=== PATIENT | male | born 1975 | race Caucasian/White ===

== ENCOUNTER 2016-05-30 02:13 | Observation (INO) | payer MEDICAID ==
[~2016-05-30] VITALS: Ht 182.9 cm; Wt 79.4 kg
[2016-05-30] MEDS ORDERED: IPRATROPIUM BROM 0.5 MG/2.5ML INH SOL NEB ONE (02:15)
[2016-05-30] MEDS ORDERED: ALBUTEROL SULF 2.5 MG/0.5ML(0.5%) NEB SOLN NEB ONE (02:15)
[2016-05-30 02:45] LABS: Basophils # (auto) 0 uL; Basophils % (auto) 0.3 % (0.0-2.0); DEFINITIVE VIEW TRANSMISSION; Eosinophils # (auto) 1.1 uL; Hematocrit 45.1 % (41.0-53.0); Hemoglobin 15.1 g/dL (13.5-17.5); Lymphocytes # (auto) 2.8 uL; Lymphocytes % (auto) 23.7 % (10.0-50.0); Mean Corpuscular Hemoglobin 29.8 pg (28.0-32.0); Mean Corpuscular Hgb Conc. 33.5 g/dL (32.0-36.0); Mean Corpuscular Volume 88.8 fL (80.0-100.0); Mean Platelet Volume 8.1 fL (7.4-10.4); Monocytes # (auto) 1.2 uL; Monocytes % (auto) 10.4 % (0.0-12.0); Neutrophils # (auto) 6.7 uL; Neutrophils % (auto) 56.6 % (37.0-80.0); Platelet Count (auto) 412 10^3/uL (140-450); White Blood Cell 11.8 10^3/uL (4.4-10.8)
[2016-05-30 03:03] LABS: Albumin 3.5 g/dL (3.4-5.0); BUN/Creatinine Ratio 14.9; Calcium 8.4 mg/dL (8.5-10.1); Potassium 4.1 mmol/L (3.5-5.1)
[2016-05-30 03:05] LABS: Bilirubin, Total 0.5 mg/dL (0.2-1.0); Total Protein 7.2 g/dL (6.4-8.2)
[2016-05-30 08:50] VITALS: BP 124/86
== END 2016-05-30 08:35 | disposition home or self-care (01) | DRG 141 ==
LOC: ER 02:16 → OVERFLOW 02:45 → ER 08:35
PROVIDERS: ADMIT Emergency Medicine; ATTEND Emergency Medicine
DX: J45.901 Unspecified asthma with (acute) exacerbation (principal); F15.10 Other stimulant abuse, uncomplicated; F17.210 Nicotine dependence, cigarettes, uncomplicated; Z76.0 Encounter for issue of repeat prescription
CPT/HCPCS: 36415; 71010; 80053; 85025; 94644; 99285; G0378; J7030

== ENCOUNTER 2016-11-18 01:17 | Emergency (ER) | payer MEDICAID ==
[~2016-11-18] VITALS: Ht 182.9 cm; Wt 78.9 kg
[2016-11-18] MEDS ORDERED: ALBUTEROL SULF 2.5 MG/0.5ML(0.5%) NEB SOLN NEB ONE ×2 (01:30→07:30)
[2016-11-18] MEDS ORDERED: IPRATROPIUM BROM 0.5 MG/2.5ML INH SOL NEB ONE ×2 (01:30→07:30)
[2016-11-18 06:32] VITALS: BP 149/89
[2016-11-18] MEDS ORDERED: methylPREDNISolone SOD SUCC 125 MG/2 ML VL IV ONE (07:30)
== END 2016-11-18 08:28 | disposition home or self-care (01) ==
LOC: ER 01:17
DX: J45.901 Unspecified asthma with (acute) exacerbation (principal); F17.210 Nicotine dependence, cigarettes, uncomplicated; R07.9 Chest pain, unspecified
CPT/HCPCS: 71010; 94640; 96374; 99284; J2930

== ENCOUNTER 2017-07-17 05:48 | Emergency (ER) | payer MEDICAID ==
[~2017-07-17] VITALS: Ht 182.9 cm; Wt 79.4 kg
[2017-07-17] MEDS ORDERED: ALBUTEROL SULF 2.5 MG/0.5ML(0.5%) NEB SOLN HHN STA (06:08)
[2017-07-17 06:10] VITALS: BP 120/72
[2017-07-17] MEDS ORDERED: IPRATROPIUM BROM 0.5 MG/2.5ML INH SOL NEB ONE (06:15)
== END 2017-07-17 07:41 | disposition home or self-care (01) ==
LOC: ER 05:48
DX: J45.901 Unspecified asthma with (acute) exacerbation (principal); F17.210 Nicotine dependence, cigarettes, uncomplicated
CPT/HCPCS: 71046; 93005; 94640

== ENCOUNTER 2018-03-13 22:55 | Emergency (ER) | payer MEDICAID ==
[~2018-03-13] VITALS: Ht 182.9 cm; Wt 79.4 kg
[2018-03-13] MEDS ORDERED: ALBUTEROL SULF 2.5 MG/0.5ML(0.5%) NEB SOLN NEB ONE (23:15)
[2018-03-13] MEDS ORDERED: IPRATROPIUM BROM 0.5 MG/2.5ML INH SOL NEB ONE (23:15)
[2018-03-13] MEDS ORDERED: IPRATROPIUM BROM 0.5 MG/2.5ML INH SOL HHN ONE (23:30)
[2018-03-13] MEDS ORDERED: TERBUTALINE SULFATE 1 MG/ML 1ML VIAL SC ONE (23:30)
[2018-03-13] MEDS ORDERED: ALBUTEROL SULF 2.5 MG/0.5ML(0.5%) NEB SOLN HHN ONE (23:30)
[2018-03-13] MEDS ORDERED: methylPREDNISolone SOD SUCC 125 MG/2 ML VL IV ONE (23:30)
[2018-03-14 00:54] LABS: Basophils # (auto) 0.1 uL; Basophils % (auto) 0.6 % (0.0-2.0); Eosinophils # (auto) 1.1 uL; Eosinophils % (auto) 8.2 % (0.0-7.0); Hematocrit 44.7 % (41.0-53.0); Hemoglobin 15.2 g/dL (13.5-17.5); Lymphocytes # (auto) 1.9 uL; Lymphocytes % (auto) 14.2 % (10.0-50.0); Mean Corpuscular Hemoglobin 29.6 pg (28.0-32.0); Mean Corpuscular Hgb Conc. 33.9 g/dL (32.0-36.0); Mean Corpuscular Volume 87.3 fL (80.0-100.0); Monocytes # (auto) 1.4 uL; Monocytes % (auto) 10.1 % (0.0-12.0); Neutrophils # (auto) 9.1 uL; Neutrophils % (auto) 66.9 % (37.0-80.0); Nucleated Red Blood Cells % 0.1 %; Platelet Count (auto) 431 10^3/uL (140-450); Red Blood Cells 5.12 10^6/uL (4.5-5.90); Red Cell Distribution Width 13.8 % (11.8-14.3); White Blood Cell 13.7 10^3/uL (4.4-10.8)
[2018-03-14] MEDS: MAGNESIUM SULFATE 1GM/100ML 100 ML IV SCH ×2 (01:00→02:00)
[2018-03-14 01:08] LABS: Albumin 3.4 g/dL (3.4-5.0); BUN/Creatinine Ratio 12.4; Potassium 3.8 mmol/L (3.5-5.1)
[2018-03-14 01:17] LABS: Bilirubin, Total 0.4 mg/dL (0.2-1.0); Calcium 8.5 mg/dL (8.5-10.1); Total Protein 7.6 g/dL (6.4-8.2)
[2018-03-14 03:10] VITALS: BP 113/64
== END 2018-03-14 03:48 | disposition home or self-care (01) ==
LOC: ER 23:01
DX: J45.909 Unspecified asthma, uncomplicated (principal); F17.210 Nicotine dependence, cigarettes, uncomplicated
CPT/HCPCS: 36415; 71045; 80053; 85025; 94640; 94761; 96365; 96366; 96372; 96375; 99284; J2930; J3105; J3475; J7611; J7644

== ENCOUNTER 2019-04-18 21:47 | Emergency (ER) | payer MEDICAID ==
[~2019-04-18] VITALS: Ht 182.9 cm; Wt 81.6 kg
[2019-04-18] MEDS ORDERED: IPRATROPIUM BROM 0.5 MG/2.5ML INH SOL NEB ONE (22:15)
[2019-04-18] MEDS ORDERED: ALBUTEROL SULF 2.5 MG/0.5ML(0.5%) NEB SOLN NEB ONE (22:15)
[2019-04-18 22:42] VITALS: BP 108/77
[2019-04-18] MEDS ORDERED: methylPREDNISolone SOD SUCC 125 MG/2 ML VL IM ONE (22:45)
== END 2019-04-19 01:56 | disposition home or self-care (01) ==
LOC: ER 21:47
DX: J45.901 Unspecified asthma with (acute) exacerbation (principal); F17.210 Nicotine dependence, cigarettes, uncomplicated
CPT/HCPCS: 71046; 94640; 96372; 99283; J2930; J7611; J7644

== ENCOUNTER → 2019-05-13 | Emergency (ER) | payer MEDICAID ==
[~2019-05-13] VITALS: Ht 182.9 cm; Wt 86.2 kg
[~2019-05-13] MED LIST: ALBUTEROL SULF 2.5 MG/0.5ML(0.5%) NEB SOLN HHN ONE; ALBUTEROL SULF 2.5 MG/0.5ML(0.5%) NEB SOLN ONE; IPRATROPIUM BROM 0.5 MG/2.5ML INH SOL HHN ONE; IPRATROPIUM BROM 0.5 MG/2.5ML INH SOL ONE; SODIUM CHLORIDE 0.9% 1,000 ML IV ONE; TERBUTALINE SULFATE 1 MG/ML 1ML VIAL SC ONE; methylPREDNISolone SOD SUCC 125 MG/2 ML VL IV ONE
[2019-05-13] MEDS: MAGNESIUM SULFATE 1GM/100ML 100 ML IV SCH ×2 (05:40→06:55)
[2019-05-13 05:45] LABS: Basophils # (auto) 0.1 uL; Hemoglobin 15.2 g/dL (13.5-17.5); Monocytes # (auto) 1.2 uL; Neutrophils # (auto) 5.3 uL; Neutrophils % (auto) 43.4 % (37.0-80.0); Nucleated Red Blood Cells % 0.1 %
[2019-05-13 05:47] LABS: Basophils % (auto) 0.9 % (0.0-2.0); Eosinophils # (auto) 1.6 uL; Eosinophils % (auto) 12.7 % (0.0-7.0); Hematocrit 44.2 % (41.0-53.0); Mean Corpuscular Hemoglobin 30.3 pg (28.0-32.0); Mean Corpuscular Hgb Conc. 34.4 g/dL (32.0-36.0); Mean Corpuscular Volume 87.9 fL (80.0-100.0); Platelet Count (auto) 478 10^3/uL (140-450); Red Blood Cells 5.03 10^6/uL (4.5-5.90); Red Cell Distribution Width 13.5 % (11.8-14.3); White Blood Cell 12.3 10^3/uL (4.4-10.8)
[2019-05-13 07:04] VITALS: BP 108/59
== END | disposition home or self-care (01) ==
LOC: ER 04:49
DX: J45.901 Unspecified asthma with (acute) exacerbation (principal); F17.210 Nicotine dependence, cigarettes, uncomplicated
CPT/HCPCS: 36415; 71045; 83880; 85025; 93005; 94640; 96365; 96366; 96372; 96375; 99285; J2930; J3105; J3475; J7611; J7644

== ENCOUNTER 2019-05-19 21:41 | Emergency (ER) | payer MEDICAID ==
[~2019-05-19] VITALS: Ht 182.9 cm; Wt 86.2 kg
[2019-05-19] MEDS ORDERED: IPRATROPIUM BROM 0.5 MG/2.5ML INH SOL NEB ONE (21:45)
[2019-05-19] MEDS ORDERED: methylPREDNISolone SOD SUCC 125 MG/2 ML VL IV ONE (21:45)
[2019-05-19] MEDS ORDERED: ALBUTEROL SULF 2.5 MG/0.5ML(0.5%) NEB SOLN NEB ONE ×2 (21:45→22:00)
[2019-05-19 22:40] LABS: Basophils # (auto) 0 uL; Basophils % (auto) 0.3 % (0.0-2.0); Eosinophils # (auto) 0.9 uL; Eosinophils % (auto) 8.5 % (0.0-7.0); Hematocrit 46.8 % (41.0-53.0); Hemoglobin 15.9 g/dL (13.5-17.5); Lymphocytes # (auto) 3.2 uL; Lymphocytes % (auto) 30.1 % (10.0-50.0); Mean Corpuscular Hemoglobin 30.2 pg (28.0-32.0); Mean Corpuscular Volume 88.9 fL (80.0-100.0); Monocytes # (auto) 0.8 uL; Neutrophils # (auto) 5.6 uL; Neutrophils % (auto) 53.1 % (37.0-80.0); Platelet Count (auto) 394 10^3/uL (140-450); Red Blood Cells 5.26 10^6/uL (4.5-5.90); Red Cell Distribution Width 13.5 % (11.8-14.3); White Blood Cell 10.6 10^3/uL (4.4-10.8)
[2019-05-19 22:57] LABS: Albumin 3.5 g/dL (3.4-5.0); Anion Gap 6 (5-15); Blood Urea Nitrogen 13 mg/dL (7-18); Calcium 8.6 mg/dL (8.5-10.1); Carbon Dioxide 28 mmol/L (21-32); Chloride 107 mmol/L (98-107); Glucose 94 mg/dL (74-106); Potassium 3.6 mmol/L (3.5-5.1); Sodium 141 mmol/L (136-145)
[2019-05-19] MEDS ORDERED: SODIUM CHLORIDE 0.9% 1,000 ML IV ONE (23:00)
[2019-05-19 23:02] LABS: Alanine Aminotransferase 25 U/L (16-61); Alkaline Phosphatase 111 U/L (45-117); Aspartate Aminotransferase 24 U/L (15-37); BUN/Creatinine Ratio 13.4; Bilirubin, Total 0.4 mg/dL (0.2-1.0); GFR African American 108 mL/min; GFR Non-African American 89 mL/min; Total Protein 7.5 g/dL (6.4-8.2)
[2019-05-20 06:27] VITALS: BP 114/68
== END 2019-05-20 06:28 | disposition home or self-care (01) ==
LOC: ER 21:41
DX: R06.02 Shortness of breath (principal); J45.909 Unspecified asthma, uncomplicated; F17.210 Nicotine dependence, cigarettes, uncomplicated
CPT/HCPCS: 36415; 71045; 80053; 84484; 85025; 94640; 96374; 99284; J2930; J7030; J7644

== ENCOUNTER 2019-06-06 11:03 | Emergency (ER) | payer MEDICAID ==
[~2019-06-06] VITALS: Ht 182.9 cm; Wt 79.4 kg
[2019-06-06] MEDS ORDERED: ALBUTEROL SULF 2.5 MG/0.5ML(0.5%) NEB SOLN ONE (11:18)
[2019-06-06] MEDS ORDERED: IPRATROPIUM BROM 0.5 MG/2.5ML INH SOL ONE (11:18)
[2019-06-06] MEDS ORDERED: SODIUM CHLORIDE 0.9% 1,000 ML IV ONE (11:27)
[2019-06-06] MEDS ORDERED: ALBUTEROL SULF 2.5 MG/0.5ML(0.5%) NEB SOLN NEB ONE ×2 (11:30)
[2019-06-06] MEDS ORDERED: IPRATROPIUM BROM 0.5 MG/2.5ML INH SOL NEB ONE ×2 (11:30)
[2019-06-06] MEDS ORDERED: MAGNESIUM SULFATE 1GM/100ML 100 ML IV ONE (11:30)
[2019-06-06] MEDS ORDERED: methylPREDNISolone SOD SUCC 125 MG/2 ML VL IV ONE (11:30)
[2019-06-06 11:53] LABS: Hematocrit 45.3 % (41.0-53.0); Hemoglobin 15.2 g/dL (13.5-17.5); Mean Corpuscular Hemoglobin 30.5 pg (28.0-32.0); Mean Corpuscular Hgb Conc. 33.5 g/dL (32.0-36.0); Mean Corpuscular Volume 91.1 fL (80.0-100.0); Platelet Count (auto) 396 10^3/uL (140-450); Red Blood Cells 4.98 10^6/uL (4.5-5.90); Red Cell Distribution Width 13.4 % (11.8-14.3); White Blood Cell 8.8 10^3/uL (4.4-10.8)
[2019-06-06 12:03] LABS: Band Neutrophils % (manual) 0; Basophils % (manual) 0 (0.0-2.0); Blast Cells 0; Metamyelocytes % 0; Myelocytes % 0; Promyelocytes % 0; Reactive Lymphocytes 0
[2019-06-06 12:11] LABS: Albumin 3.3 g/dL (3.4-5.0); Anion Gap 4 (5-15); Blood Urea Nitrogen 16 mg/dL (7-18); Calcium 8.6 mg/dL (8.5-10.1); Carbon Dioxide 28 mmol/L (21-32); Chloride 107 mmol/L (98-107); Glucose 77 mg/dL (74-106); Sodium 139 mmol/L (136-145)
[2019-06-06 12:16] LABS: Alanine Aminotransferase 25 U/L (16-61); Alkaline Phosphatase 90 U/L (45-117); Aspartate Aminotransferase 21 U/L (15-37); Bilirubin, Total 0.3 mg/dL (0.2-1.0); GFR African American 127 mL/min; GFR Non-African American 105 mL/min
[2019-06-06 12:32] LABS: Eosinophils % (manual) 15 (0-7); Lymphocytes % (manual) 41 (10.0-50.0); Monocytes % (manual) 9 (0-12)
[2019-06-06 12:51] LABS: Urine Bacteria NONE SEEN /hpf (None Seen); Urine Blood Negative /uL (Negative); Urine Specific Gravity 1.015 (1.001-1.035); Urine WBC 1 /hpf (0 - 3)
[2019-06-06 15:13] LABS: Amphetamine Screen, Urine POSITIVE (NEGATIVE); Barbiturate Scree,Urine NEGATIVE (NEGATIVE); Benzodiazephine Screen, Urine NEGATIVE (NEGATIVE); Cannabinoid Screen, Urine NEGATIVE (NEGATIVE); Cocaine Screen, Urine POSITIVE (NEGATIVE); Opiate Scree,Urine NEGATIVE (NEGATIVE); Phencyclidine Screen, Urine NEGATIVE (NEGATIVE)
[2019-06-06 15:35] VITALS: BP 128/72
== END 2019-06-06 16:38 | disposition left against medical advice (07) ==
LOC: ER 11:03
DX: J45.901 Unspecified asthma with (acute) exacerbation (principal)
CPT/HCPCS: 36415; 71045; 80053; 80307; 81001; 84484; 85007; 85027; 85379; 94640; 96365; 96375; 99284; J2930; J3475; J7644

== ENCOUNTER 2019-06-18 19:58 | Emergency (ER) | payer MEDICAID ==
[~2019-06-18] VITALS: Ht 182.9 cm; Wt 79.4 kg
[2019-06-18 20:37] VITALS: BP 124/94
== END 2019-06-18 21:56 | disposition left against medical advice (07) ==
LOC: ER 19:58
DX: H57.12 Ocular pain, left eye (principal); Z53.21 Procedure and treatment not carried out due to patient leaving prior to being seen by health care provider

== ENCOUNTER 2019-07-10 20:43 | Emergency (ER) | payer MEDICAID ==
[~2019-07-10] VITALS: Ht 182.9 cm; Wt 79.4 kg
[2019-07-10 20:51] VITALS: BP 124/74
== END 2019-07-11 02:32 | disposition left against medical advice (07) ==
LOC: ER 20:45
DX: H57.89 Other specified disorders of eye and adnexa (principal); Z53.21 Procedure and treatment not carried out due to patient leaving prior to being seen by health care provider
CPT/HCPCS: 70486

== ENCOUNTER 2019-08-28 20:17 | Inpatient (IN) | payer MEDICAID ==
[~2019-08-28] VITALS: Ht 182.9 cm; Wt 76.6 kg
[2019-08-28 20:58] LABS: Basophils # (auto) 0.1 10 ^3/uL (0-0.2)
[2019-08-28 21:00] LABS: Basophils % (auto) 0.5 % (0.0-2.0); Eosinophils # (auto) 1.1 10 ^3/uL (0-0.8); Eosinophils % (auto) 5.4 % (0.0-7.0); Hematocrit 43.5 % (41.0-53.0); Hemoglobin 14.6 g/dL (13.5-17.5); Lymphocytes % (auto) 15.1 % (10.0-50.0); Mean Corpuscular Hemoglobin 29.3 pg (28.0-32.0); Mean Corpuscular Hgb Conc. 33.6 g/dL (32.0-36.0); Mean Corpuscular Volume 87.3 fL (80.0-100.0); Monocytes # (auto) 1.4 10 ^3/uL (0-1.3); Monocytes % (auto) 7.1 % (0.0-12.0); Neutrophils # (auto) 14.3 10 ^3/uL (1.6-8.6); Neutrophils % (auto) 71.9 % (37.0-80.0); Platelet Count (auto) 503 10^3/uL (140-450); Red Blood Cells 4.98 10^6/uL (4.5-5.90); Red Cell Distribution Width 13.7 % (11.8-14.3); White Blood Cell 19.9 10^3/uL (4.4-10.8)
[2019-08-28 21:15] LABS: BUN/Creatinine Ratio 18.3; Calcium 8.7 mg/dL (8.5-10.1); Potassium 3.4 mmol/L (3.5-5.1)
[2019-08-28] MEDS ORDERED: methylPREDNISolone SOD SUCC 125 MG/2 ML VL IV ONE (23:30)
[2019-08-28] MEDS ORDERED: cefTRIAXone 1GM/50ML D5W 50 ML IV ONE (23:30)
[2019-08-28] MEDS ORDERED: KETOROLAC TROMETH 30 MG/ML 1ML VIAL IV ONE (23:30)
[2019-08-28] MEDS ORDERED: SODIUM CHLORIDE 0.9% 2,000 ML IV ONE (23:30)
[2019-08-29] MEDS ORDERED: SODIUM CHLORIDE 0.9% 1,000 ML IV SCH (03:16)
[2019-08-29] MEDS ORDERED: DOCUSATE SOD 100 MG CAP PO PRN (03:30)
[2019-08-29] MEDS ORDERED: hydrALAZINE HCL 25 MG TAB PO PRN (03:30)
[2019-08-29] MEDS ORDERED: ACETAMINOPHEN 325 MG TAB PO PRN (03:30)
[2019-08-29] MEDS ORDERED: SODIUM CHLORIDE 0.9% 1,000 ML IV ONE (03:30)
[2019-08-29] MEDS ORDERED: ALBUTEROL SULF 2.5 MG/0.5ML(0.5%) NEB SOLN NEB PRN (03:30)
[2019-08-29] MEDS ORDERED: MORPHINE SULF INJ 2 MG/ML SYRINGE 1ML IV PRN (03:30)
[2019-08-29] MEDS ORDERED: ONDANSETRON HCL 4 MG/2 ML VIAL IV PRN (03:30)
[2019-08-29] MEDS ORDERED: HYDROcodone-ACET 5/325MG TAB PO PRN (03:30)
[2019-08-29] MEDS ORDERED: IPRATROPIUM BROM 0.5 MG/2.5ML INH SOL NEB PRN (03:30)
[2019-08-29] MEDS: CLINDAMYCIN 600MG IV 50 ML IV SCH ×3 (05:58→17:51)
[2019-08-29 07:33] LABS: Basophils # (auto) 0 10 ^3/uL (0-0.2); Basophils % (auto) 0.3 % (0.0-2.0); Eosinophils # (auto) 0 10 ^3/uL (0-0.8); Eosinophils % (auto) 0.1 % (0.0-7.0); Hematocrit 41.7 % (41.0-53.0); Hemoglobin 13.9 g/dL (13.5-17.5); Lymphocytes # (auto) 0.6 10 ^3/uL (0.4-5.4); Lymphocytes % (auto) 4.3 % (10.0-50.0); Mean Corpuscular Hemoglobin 29.4 pg (28.0-32.0); Mean Corpuscular Hgb Conc. 33.3 g/dL (32.0-36.0); Mean Corpuscular Volume 88.1 fL (80.0-100.0); Monocytes # (auto) 0.2 10 ^3/uL (0-1.3); Monocytes % (auto) 1.3 % (0.0-12.0); Neutrophils # (auto) 13.9 10 ^3/uL (1.6-8.6); Platelet Count (auto) 471 10^3/uL (140-450); Red Blood Cells 4.73 10^6/uL (4.5-5.90); Red Cell Distribution Width 13.5 % (11.8-14.3); White Blood Cell 14.8 10^3/uL (4.4-10.8)
[2019-08-29 07:48] LABS: Calcium 8.1 mg/dL (8.5-10.1); Potassium 4.1 mmol/L (3.5-5.1)
[2019-08-29 07:52] LABS: BUN/Creatinine Ratio 16.2
--- NOTE | 2019-08-29 11:30 | NUR ---
[facility] admit from ER LI[facility] BURNETT admitted to [facility] after SBAR received. Patient oriented to Noelle alexandre RN, unit, room, bed, and unit policies regarding patient care and visiting hours. Patient weighed by bedscale and encouraged to call if they need something. All questions and concerns addressed, patient verbalized understanding.
[2019-08-29 13:00] VITALS: BP 118/64
--- NOTE | 2019-08-29 13:40 | NUR ---
Respiratory note: PT ASSESSED FOR PRN MED NEB TX, NO TX DESIRED NOR INDICATED. PT SLEEPING WITH NO NOTED DISTRESS, DENIES ANY CURRENT SOB. PT AND RN AWARE TO HAVE RT PAGED IF NEEDED. HR 83 RR 16 SPO2 96% ON RA BREATH SOUNDS ARE DIMINISHED T/O.
[2019-08-29 15:42] VITALS: BP 124/78
[2019-08-29 16:27] LABS: Amphetamine Screen, Urine POSITIVE (NEGATIVE); Barbiturate Scree,Urine NEGATIVE (NEGATIVE); Benzodiazephine Screen, Urine NEGATIVE (NEGATIVE); Cannabinoid Screen, Urine NEGATIVE (NEGATIVE)
[2019-08-29 16:35] LABS: Cocaine Screen, Urine NEGATIVE (NEGATIVE); Opiate Scree,Urine NEGATIVE (NEGATIVE); Phencyclidine Screen, Urine POSITIVE (NEGATIVE)
[2019-08-29 16:43] LABS: Alcohol, Urine < 3.0 mg/dL (0-10)
[2019-08-29 17:00] VITALS: BP 110/58
[2019-08-29] MEDS: cefTRIAXone 1GM/50ML D5W 50 ML IV SCH (21:27)
[2019-08-29 22:00] VITALS: BP 107/61
[2019-08-30] MEDS: CLINDAMYCIN 600MG IV 50 ML IV SCH ×4 (00:49→17:46)
[2019-08-30 05:00] VITALS: BP 102/56
--- NOTE | 2019-08-30 07:20 | NUR ---
Opening Shift Note RECEIVED REPORT FROM NOC RN. Assumed care of patient, awake and alert. No S/S of distress/SOB or pain. BED IN LOWEST, LOCKED POSITION WITH SIDE RAILS UP x2 AND CALL LIGHT WITHIN REACH. Instructed on POC,call light within reach patient reminded instructed to call for assistance.patient verbalized understanding.will continue to monitor for changes Q1hr and PRN.
[2019-08-30 08:33] VITALS: BP 105/63
[2019-08-30 09:00] VITALS: BP 118/68
--- NOTE | 2019-08-30 09:30 | NUR ---
INFORMED CONSENT FOR SMOKING PATIENT REQUESTING TO GO OUT TO CHECK OUT ON HIS CAR THAT IS PARK IN THE HOSPITAL PARKING LOT,EXPLAIN TO PATIENT NEEDING HIM TO SIGN INFORMED CONSENT FOR SMOKING,EXPLAIN THE RISK THAT MAY OCCUR WHILE OUT AND WILL NOT HOLD THIS FACILITY,EMPLOYEES AND PHYSICIANS RESPONSIBLE FOR ANY RISK OR COMPLICATIONS THAT MAY ARISE THE RESULT OF LEAVING THE UNIT TO SMOKE OR JUST TO GET OUT.PATIENT ASSUMED RISK AND VERBALIZED UNDERSTANDING.CONSENT SIGNED AND PATIENT WENT OUT AMBULATORY INDEPENDENTLY.
[2019-08-30] MEDS: cefTRIAXone 1GM/50ML D5W 50 ML IV SCH ×2 (10:27→21:00)
[2019-08-30 13:00] VITALS: BP 118/68
[2019-08-30 13:21] LABS: Basophils # (auto) 0.1 10 ^3/uL (0-0.2); Basophils % (auto) 0.8 % (0.0-2.0); Eosinophils # (auto) 0.6 10 ^3/uL (0-0.8); Eosinophils % (auto) 4.1 % (0.0-7.0); Hematocrit 38.7 % (41.0-53.0); Lymphocytes # (auto) 3.8 10 ^3/uL (0.4-5.4); Lymphocytes % (auto) 27.2 % (10.0-50.0); Mean Corpuscular Hemoglobin 29.6 pg (28.0-32.0); Mean Corpuscular Hgb Conc. 33.6 g/dL (32.0-36.0); Monocytes # (auto) 1.2 10 ^3/uL (0-1.3); Monocytes % (auto) 8.9 % (0.0-12.0); Neutrophils # (auto) 8.2 10 ^3/uL (1.6-8.6); Nucleated Red Blood Cells % 0.1 %; Platelet Count (auto) 476 10^3/uL (140-450); Red Cell Distribution Width 13.6 % (11.8-14.3)
[2019-08-30 13:39] LABS: Calcium 8.1 mg/dL (8.5-10.1); Potassium 3.9 mmol/L (3.5-5.1)
[2019-08-30 13:45] LABS: BUN/Creatinine Ratio 20.2
[2019-08-30 17:00] VITALS: BP 114/69
--- NOTE | 2019-08-30 19:07 | NUR ---
status unchanged no distress no discomfort
--- NOTE | 2019-08-30 19:08 | NUR ---
Respiratory note: PT RECIEVED ON RA. PT WAS SLEEPING WHEN ENTERING ROOM AND AWAKENS EASILY. NO RESP DISTRESS NOTED. PRN TX NOT INDICATED AT THIS TIME. SPO2 95%, HR 92, RR 16, BS CLR/DIM T/O. PT AWARE TO CALL FOR PRN TX IF SOB/WHEEZING.
--- NOTE | 2019-08-30 19:25 | NUR ---
Opening Shift Note Assumed care of patient. Patient sleeping comfortably. No S/S of distress/SOB or pain. Will continue to monitor for changes Q1hr and PRN. Bed locked in lowest position and bed rails up x2. Call light within reach.
[2019-08-30 22:00] VITALS: BP 100/61
[2019-08-31 05:17] VITALS: BP 113/64
[2019-08-31] MEDS: CLINDAMYCIN 600MG IV 50 ML IV SCH ×3 (06:10→12:00)
--- NOTE | 2019-08-31 07:15 | NUR ---
Opening Shift Note RECEIVED REPORT FROM NOC RN. Assumed care of patient, ASLEEP,No S/S of distress/SOB or pain. BED IN LOWEST, LOCKED POSITION WITH SIDE RAILS UP x2 AND CALL LIGHT WITHIN REACH.will continue to monitor for changes Q1hr and PRN.
[2019-08-31 09:00] VITALS: BP 114/59
[2019-08-31] MEDS: cefTRIAXone 1GM/50ML D5W 50 ML IV SCH (10:01)
--- NOTE | 2019-08-31 10:30 | NUR ---
PER PATIENT MD WAS HERE TO SEE HIM ,STATED MD STATED WILL BE DISCHARGE.
--- NOTE | 2019-08-31 12:00 | NUR ---
Right foot IV site leaking,patient refused for another IV restarted,explain due antibiotic,but refused
[2019-08-31] MEDS ORDERED: FUROSEMIDE 40 MG/4 ML VIAL ONE (12:01)
--- NOTE | 2019-08-31 12:30 | NUR ---
Pageniranjan and spoke to re Lasix IV informed IV site leaking and patient refused to re start another IV line,received order to hold Lasix
[2019-08-31 13:00] VITALS: BP 102/62
[2019-08-31 13:12] VITALS: BP 114/59
[2019-08-31] MEDS ORDERED: CEPH-37 PO (13:27)
[2019-08-31] MEDS ORDERED: CLIN300C8 PO (13:28)
[2019-08-31] MEDS ORDERED: PANT40TA2 PO (13:28)
--- NOTE | 2019-08-31 14:20 | NUR ---
Discharge instructions given as ordered. Encourage to follow up with PMD as instructed. All questions and concerns addressed. Patient verbalized understanding. Medication reconciliation form completed and copy given to patient. IV removed with catheter intact, pressure dressing applied. . Patient ambulated, stated drove self and car is park in ER parking lot,with all personal belongings. No distress noted at time of departure.
== END 2019-08-31 14:20 | disposition home or self-care (01) | DRG 383 ==
LOC: ER 20:19 → OVERFLOW 20:20 → WEST WING 08-29 11:33
PROVIDERS: ADMIT Hospitalist; ATTEND Internal Medicine Nephrology
DX: L03.113 Cellulitis of right upper limb (principal); D72.829 Elevated white blood cell count, unspecified; E86.0 Dehydration; M60.9 Myositis, unspecified; L30.9 Dermatitis, unspecified; F15.10 Other stimulant abuse, uncomplicated; F17.210 Nicotine dependence, cigarettes, uncomplicated; J45.909 Unspecified asthma, uncomplicated; M72.9 Fibroblastic disorder, unspecified; F19.10 Other psychoactive substance abuse, uncomplicated
CPT/HCPCS: 36415; 73200; 80048; 80061; 80307; 83036; 83605; 83880; 85025; 87040; 96361; 96365; 96375; G0378; J0696; J1885; J3490

== ENCOUNTER 2020-11-03 03:16 | Emergency (ER) | payer MEDICAID ==
[~2020-11-03] VITALS: Ht 182.9 cm; Wt 79.4 kg
[~2020-11-03 03:16] MED LIST changes: -ALBUTEROL SULF 2.5 MG/0.5ML(0.5%) NEB SOLN HHN ONE; -ALBUTEROL SULF 2.5 MG/0.5ML(0.5%) NEB SOLN ONE; +CEPH-37 PO; +CLIN300C8 PO; -IPRATROPIUM BROM 0.5 MG/2.5ML INH SOL HHN ONE; -IPRATROPIUM BROM 0.5 MG/2.5ML INH SOL ONE; +PANT40TA2 PO; -SODIUM CHLORIDE 0.9% 1,000 ML IV ONE; -TERBUTALINE SULFATE 1 MG/ML 1ML VIAL SC ONE; -methylPREDNISolone SOD SUCC 125 MG/2 ML VL IV ONE
[2020-11-03] MEDS: ALBUTEROL SULF 2.5 MG/0.5ML(0.5%) NEB SOLN NEB ONE ×2 (03:30→03:45)
[2020-11-03] MEDS: IPRATROPIUM BROM 0.5 MG/2.5ML INH SOL NEB ONE ×2 (03:30→03:45)
[2020-11-03] MEDS ORDERED: methylPREDNISolone SOD SUCC 125 MG/2 ML VL ONE (03:45)
[2020-11-03] MEDS ORDERED: MAGNESIUM SULFATE 1GM/100ML 100 ML IV ONE (04:00)
[2020-11-03] MEDS ORDERED: methylPREDNISolone SOD SUCC 125 MG/2 ML VL IV ONE (04:00)
[2020-11-03 04:09] VITALS: BP 136/73
[2020-11-03] MEDS ORDERED: KETOROLAC TROMETH 30 MG/ML 1ML VIAL ONE (05:06)
[2020-11-03] MEDS ORDERED: KETOROLAC TROMETH 30 MG/ML 1ML VIAL IV ONE (05:15)
== END 2020-11-03 07:54 | disposition home or self-care (01) ==
LOC: ER 03:16
DX: J45.909 Unspecified asthma, uncomplicated (principal); F17.210 Nicotine dependence, cigarettes, uncomplicated
CPT/HCPCS: 71045; 94644; 96365; 96375; 99285; J1885; J2930; J3475; J7644

== ENCOUNTER 2021-04-21 03:03 | Emergency (ER) | payer MEDICAID ==
[~2021-04-21] VITALS: Ht 175.3 cm; Wt 72.6 kg
[2021-04-21] MEDS ORDERED: methylPREDNISolone SOD SUCC 125 MG/2 ML VL IV ONE (03:15)
[2021-04-21] MEDS ORDERED: ALBUTEROL SULF 2.5 MG/0.5ML(0.5%) NEB SOLN NEB ONE ×2 (03:15→04:15)
[2021-04-21] MEDS ORDERED: IPRATROPIUM BROM 0.5 MG/2.5ML INH SOL NEB ONE ×2 (03:15→04:15)
[2021-04-21] MEDS ORDERED: KETAMINE 50mg/ML 10ml Vial (500mg/10ml) IM ONE (03:30)
[2021-04-21] MEDS: MAGNESIUM SULFATE 1GM/100ML 100 ML IV SCH ×2 (03:45→04:21)
[2021-04-21 04:24] VITALS: BP 141/83
== END 2021-04-21 05:19 | disposition home or self-care (01) ==
LOC: ER 03:03
DX: J45.901 Unspecified asthma with (acute) exacerbation (principal); F17.210 Nicotine dependence, cigarettes, uncomplicated; F12.10 Cannabis abuse, uncomplicated
CPT/HCPCS: 71045; 94640; 96365; 96366; 96375; 99291; J2930; J3475; J7644; 94644; 94645

== ENCOUNTER 2021-05-23 08:06 | Emergency (ER) | payer MEDICAID ==
[~2021-05-23] VITALS: Ht 182.9 cm; Wt 79.4 kg
[2021-05-23 08:06] VITALS: BP 135/64
[2021-05-23] MEDS ORDERED: MAGNESIUM SULFATE 1GM/100ML 100 ML IV ONE (08:15)
[2021-05-23] MEDS ORDERED: methylPREDNISolone SOD SUCC 125 MG/2 ML VL IV ONE (08:15)
[2021-05-23] MEDS ORDERED: ALBUTEROL SULF 2.5 MG/0.5ML(0.5%) NEB SOLN NEB ONE (08:15)
[2021-05-23] MEDS ORDERED: IPRATROPIUM BROM 0.5 MG/2.5ML INH SOL NEB ONE (08:15)
[2021-05-23 09:29] LABS: Albumin 3.7 g/dL (3.4-5.0); Calcium 9.5 mg/dL (8.5-10.1); Potassium 4.7 mmol/L (3.5-5.1)
[2021-05-23 09:31] LABS: Basophils # (auto) 0.1 10 ^3/uL (0-0.2); Basophils % (auto) 0.9 % (0.0-2.0); Eosinophils # (auto) 1.3 10 ^3/uL (0-0.8); Eosinophils % (auto) 10.6 % (0.0-7.0); Hematocrit 47.4 % (41.0-53.0); Hemoglobin 16.1 g/dL (13.5-17.5); Lymphocytes # (auto) 2.9 10 ^3/uL (0.4-5.4); Lymphocytes % (auto) 23.8 % (10.0-50.0); Mean Corpuscular Hemoglobin 30.5 pg (28.0-32.0); Mean Corpuscular Hgb Conc. 33.9 g/dL (32.0-36.0); Monocytes # (auto) 1.1 10 ^3/uL (0-1.3); Monocytes % (auto) 8.6 % (0.0-12.0); Neutrophils # (auto) 6.9 10 ^3/uL (1.6-8.6); Neutrophils % (auto) 56.1 % (37.0-80.0); Nucleated Red Blood Cells % 0.1 %; Red Blood Cells 5.27 10^6/uL (4.5-5.90); Red Cell Distribution Width 13.8 % (11.8-14.3); White Blood Cell 12.4 10^3/uL (4.4-10.8)
[2021-05-23 09:45] LABS: Bilirubin, Total 0.6 mg/dL (0.2-1.0); Total Protein 7.7 g/dL (6.4-8.2)
[2021-05-23 10:12] LABS: Urine Bacteria NONE SEEN /hpf (None Seen); Urine Blood Negative /uL (Negative); Urine Specific Gravity 1.015 (1.001-1.035); Urine WBC 4 /hpf (0 - 3)
== END 2021-05-23 09:56 | disposition left against medical advice (07) ==
LOC: ER 08:06
DX: J45.901 Unspecified asthma with (acute) exacerbation (principal)
CPT/HCPCS: 36415; 71045; 80053; 81001; 83880; 84484; 85025; 94640; 96365; 96375; 99291; J2930; J3475; J7644

== ENCOUNTER 2021-07-31 00:09 | Emergency (ER) | payer MEDICAID ==
[~2021-07-31] VITALS: Ht 182.9 cm; Wt 79.4 kg
[2021-07-31] MEDS ORDERED: ALBUTEROL SULF 2.5 MG/0.5ML(0.5%) NEB SOLN NEB ONE ×2 (00:15→00:45)
[2021-07-31] MEDS ORDERED: IPRATROPIUM BROM 0.5 MG/2.5ML INH SOL NEB ONE ×2 (00:15→00:45)
[2021-07-31] MEDS ORDERED: predniSONE 20 MG TAB PO ONE (00:45)
[2021-07-31] MEDS ORDERED: ALBUTEROL SULF 2.5 MG/0.5ML(0.5%) NEB SOLN ONE (00:47)
[2021-07-31] MEDS ORDERED: IPRATROPIUM BROM 0.5 MG/2.5ML INH SOL ONE (00:47)
[2021-07-31] MEDS ORDERED: PRED20TA2 PO (01:53)
[2021-07-31] MEDS ORDERED: ALBU108A5 IN (01:53)
[2021-07-31] MEDS ORDERED: ALBU0.084 NEB (01:53)
[2021-07-31 02:00] VITALS: BP 109/62
== END 2021-07-31 03:13 | disposition home or self-care (01) ==
LOC: ER 00:09
DX: J45.901 Unspecified asthma with (acute) exacerbation (principal); F15.10 Other stimulant abuse, uncomplicated; F14.10 Cocaine abuse, uncomplicated
CPT/HCPCS: 94640; 94644; 99285; J7512; J7644

== ENCOUNTER 2021-08-28 21:33 | Emergency (ER) | payer MEDICAID ==
[~2021-08-28 21:33] MED LIST changes: +ALBU0.084 NEB; +ALBU108A5 IN; +PRED20TA2 PO
[2021-08-28] MEDS ORDERED: MAGNESIUM SULFATE 1GM/100ML 100 ML IV ONE (21:45)
[2021-08-28] MEDS ORDERED: DexAMETHasone SOD PHOS 10MG/1ML VIAL INJ IM ONE (21:45)
[2021-08-28] MEDS ORDERED: IPRATROPIUM BROM 0.5 MG/2.5ML INH SOL NEB ONE (21:45)
[2021-08-28] MEDS ORDERED: ALBUTEROL SULF 2.5 MG/0.5ML(0.5%) NEB SOLN NEB ONE (21:45)
[2021-08-28] MEDS ORDERED: METH4TAB47 PO (23:09)
[2021-08-28] MEDS ORDERED: ALBU108A5 IN (23:09)
[2021-08-28 23:14] VITALS: BP 126/81
== END 2021-08-28 23:33 | disposition home or self-care (01) ==
LOC: ER 21:33
DX: J45.909 Unspecified asthma, uncomplicated (principal)
CPT/HCPCS: 94640; 96365; 96372; 99284; J1100; J3475; J7644

== ENCOUNTER 2021-10-10 08:20 | Emergency (ER) | payer MEDICAID ==
[~2021-10-10] VITALS: Ht 182.9 cm; Wt 79.5 kg
[~2021-10-10 08:20] MED LIST changes: +METH4TAB47 PO
[2021-10-10] MEDS ORDERED: ALBUTEROL SULF 2.5 MG/0.5ML(0.5%) NEB SOLN HHN STA (08:33)
[2021-10-10] MEDS ORDERED: IPRATROPIUM BROM 0.5 MG/2.5ML INH SOL HHN ONE (08:45)
[2021-10-10] MEDS ORDERED: IPRATROPIUM BROM 0.5 MG/2.5ML INH SOL NEB ONE (08:45)
[2021-10-10] MEDS ORDERED: ALBUTEROL SULF 2.5 MG/0.5ML(0.5%) NEB SOLN HHN ONE (08:45)
[2021-10-10] MEDS ORDERED: methylPREDNISolone SOD SUCC 125 MG/2 ML VL IV ONE (08:45)
[2021-10-10] MEDS ORDERED: methylPREDNISolone SOD SUCC 125 MG/2 ML VL IM ONE (09:30)
[2021-10-10] MEDS ORDERED: ALBUAER3 IN (11:20)
[2021-10-10] MEDS ORDERED: METH4PAK PO (11:20)
[2021-10-10 11:33] VITALS: BP 115/71
== END 2021-10-10 11:35 | disposition home or self-care (01) ==
LOC: ER 08:20
DX: J45.901 Unspecified asthma with (acute) exacerbation (principal); F12.10 Cannabis abuse, uncomplicated; F15.10 Other stimulant abuse, uncomplicated; F14.10 Cocaine abuse, uncomplicated
CPT/HCPCS: 71046; 94640; 94644; 96372; 99285; J2930; J7644; 93005

== ENCOUNTER 2021-11-11 17:16 | Emergency (ER) | payer MEDICAID ==
[~2021-11-11] VITALS: Ht 182.9 cm; Wt 79.5 kg
[~2021-11-11 17:16] MED LIST changes: +ALBUAER3 IN; +METH4PAK PO
[2021-11-11 17:18] VITALS: BP 100/63
[2021-11-11] MEDS ORDERED: ALBUAER3 IN (18:43)
[2021-11-11] MEDS ORDERED: METH4PAK PO (18:50)
== END 2021-11-11 23:50 | disposition left against medical advice (07) ==
LOC: ER 17:18
DX: J45.901 Unspecified asthma with (acute) exacerbation (principal); F12.10 Cannabis abuse, uncomplicated; F15.10 Other stimulant abuse, uncomplicated; F14.10 Cocaine abuse, uncomplicated

== ENCOUNTER 2022-03-02 10:47 | Emergency (ER) | payer MEDICAID ==
[~2022-03-02] VITALS: Ht 182.9 cm; Wt 87.0 kg
[2022-03-02] MEDS ORDERED: ALBUTEROL SULF 2.5 MG/0.5ML(0.5%) NEB SOLN NEB ONE ×2 (11:15→11:30)
[2022-03-02] MEDS ORDERED: IPRATROPIUM BROM 0.5 MG/2.5ML INH SOL NEB ONE ×2 (11:15→11:30)
[2022-03-02] MEDS ORDERED: DexAMETHasone SOD PHOS 10MG/1ML VIAL INJ PO ONE (11:30)
[2022-03-02] MEDS ORDERED: AZIT250T8 PO (13:28)
[2022-03-02] MEDS ORDERED: DEXA6TAB6 PO (13:28)
[2022-03-02 13:35] VITALS: BP 125/73
== END 2022-03-02 13:58 | disposition home or self-care (01) ==
LOC: ER 10:47
DX: J45.909 Unspecified asthma, uncomplicated (principal); Z79.2 Long term (current) use of antibiotics; Z79.899 Other long term (current) drug therapy
CPT/HCPCS: 94640; 99283; J1100; J7644

== ENCOUNTER 2022-04-09 14:44 | Emergency (ER) | payer MEDICAID ==
[~2022-04-09] VITALS: Ht 182.9 cm; Wt 79.5 kg
[~2022-04-09 14:44] MED LIST changes: +AZIT250T8 PO; +DEXA6TAB6 PO
[2022-04-09] MEDS: ALBUTEROL SULF 2.5 MG/0.5ML(0.5%) NEB SOLN NEB ONE (16:08)
[2022-04-09] MEDS: ALBUTEROL MEDNEB 2.5 mg/3ml NEB ONE (16:08)
[2022-04-09] MEDS: IPRATROPIUM BROM 0.5 MG/2.5ML INH SOL NEB ONE (16:08)
[2022-04-09] MEDS: IPRATROPIUM BROM 0.5 MG/2.5ML INH SOL ONE (16:08)
[2022-04-09 16:13] VITALS: BP 118/66
[2022-04-09] MEDS: methylPREDNISolone SOD SUCC 125 MG/2 ML VL IM ONE (16:18)
[2022-04-09] MEDS ORDERED: PRED20TA2 PO (17:05)
[2022-04-09] MEDS ORDERED: ALBU108A5 IN (17:05)
[2022-04-09] MEDS ORDERED: TRIA0.1O TOP (17:05)
== END 2022-04-09 17:20 | disposition home or self-care (01) ==
LOC: ER 14:44
DX: J45.901 Unspecified asthma with (acute) exacerbation (principal); L20.9 Atopic dermatitis, unspecified; F12.10 Cannabis abuse, uncomplicated; F15.10 Other stimulant abuse, uncomplicated; F14.10 Cocaine abuse, uncomplicated
CPT/HCPCS: 71045; 94640; 96372; 99283; J2930; J7644

== ENCOUNTER 2022-04-27 02:14 | Emergency (ER) | payer MEDICAID ==
[~2022-04-27] VITALS: Ht 182.9 cm; Wt 80.0 kg
[~2022-04-27 02:14] MED LIST changes: +TRIA0.1O TOP
[2022-04-27 02:20] VITALS: BP 131/79
== END 2022-04-27 08:01 | disposition left against medical advice (07) ==
LOC: ER 02:14
DX: S01.01XA Laceration without foreign body of scalp, initial encounter (principal); Z53.21 Procedure and treatment not carried out due to patient leaving prior to being seen by health care provider; W01.198A Fall on same level from slipping, tripping and stumbling with subsequent striking against other object, initial encounter; Y93.89 Activity, other specified; Y92.89 Other specified places as the place of occurrence of the external cause; Y99.8 Other external cause status

== ENCOUNTER 2022-04-30 04:37 | Emergency (ER) | payer MEDICAID ==
[~2022-04-30] VITALS: Ht 182.9 cm; Wt 80.0 kg
[2022-04-30 04:37] VITALS: BP 146/80
[2022-04-30] MEDS ORDERED: IPRATROPIUM BROM 0.5 MG/2.5ML INH SOL NEB ONE (04:45)
[2022-04-30] MEDS ORDERED: ALBUTEROL SULF 2.5 MG/0.5ML(0.5%) NEB SOLN NEB ONE (04:45)
[2022-04-30] MEDS ORDERED: ALBUTEROL MEDNEB 2.5 mg/3ml NEB ONE (04:47)
[2022-04-30] MEDS ORDERED: methylPREDNISolone SOD SUCC 125 MG/2 ML VL IV ONE (05:00)
[2022-04-30 06:31] LABS: Basophils # (auto) 0.1 10 ^3/uL (0-0.2); Basophils % (auto) 0.4 % (0.0-2.0); Eosinophils # (auto) 0.2 10 ^3/uL (0-0.8); Hemoglobin 15.1 g/dL (13.5-17.5); Monocytes # (auto) 0.1 10 ^3/uL (0-1.3); Red Cell Distribution Width 14.4 % (11.8-14.3)
[2022-04-30 06:33] LABS: Eosinophils % (auto) 1.1 % (0.0-7.0); Hematocrit 46.4 % (41.0-53.0); Lymphocytes # (auto) 0.6 10 ^3/uL (0.4-5.4); Lymphocytes % (auto) 4.5 % (10.0-50.0); Mean Corpuscular Hemoglobin 28.4 pg (28.0-32.0); Mean Corpuscular Hgb Conc. 32.6 g/dL (32.0-36.0); Mean Corpuscular Volume 87.3 fL (80.0-100.0); Neutrophils # (auto) 13.3 10 ^3/uL (1.6-8.6); Nucleated Red Blood Cells % 0.1 %; Red Blood Cells 5.32 10^6/uL (4.5-5.90); White Blood Cell 14.3 10^3/uL (4.4-10.8)
[2022-04-30 06:48] LABS: Albumin 3.5 g/dL (3.4-5.0); Calcium 9.3 mg/dL (8.5-10.1); Magnesium 2.3 mg/dL (1.6-2.6); Potassium 4.2 mmol/L (3.5-5.1)
[2022-04-30 06:50] LABS: BUN/Creatinine Ratio 21.2
[2022-04-30 06:52] LABS: Bilirubin, Total 0.6 mg/dL (0.2-1.0); Total Protein 7.8 g/dL (6.4-8.2)
[2022-04-30] MEDS ORDERED: METH4PAK PO (07:52)
[2022-04-30] MEDS ORDERED: AZIT1POW PO (07:52)
== END 2022-04-30 12:00 | disposition left against medical advice (07) ==
LOC: ER 04:37
DX: J45.909 Unspecified asthma, uncomplicated (principal); D72.829 Elevated white blood cell count, unspecified; F12.10 Cannabis abuse, uncomplicated; F15.10 Other stimulant abuse, uncomplicated; F14.10 Cocaine abuse, uncomplicated; Z87.891 Personal history of nicotine dependence; Z79.899 Other long term (current) drug therapy
CPT/HCPCS: 36415; 71045; 80053; 83735; 85025; 94640; 96374; 99284; J2930; J7644

== ENCOUNTER 2022-05-20 23:39 | Emergency (ER) | payer MEDICAID ==
[~2022-05-20] VITALS: Ht 177.8 cm; Wt 86.2 kg
[~2022-05-20 23:39] MED LIST changes: +AZIT1POW PO
[2022-05-20 23:43] VITALS: BP 110/78
[2022-05-21] MEDS ORDERED: IPRATROPIUM BROM 0.5 MG/2.5ML INH SOL NEB ONE (01:15)
[2022-05-21] MEDS ORDERED: ALBUTEROL SULF 2.5 MG/0.5ML(0.5%) NEB SOLN NEB ONE (01:15)
[2022-05-21] MEDS ORDERED: methylPREDNISolone SOD SUCC 125 MG/2 ML VL IM ONE ×2 (01:15→01:30)
[2022-05-21] MEDS ORDERED: ALBUTEROL MEDNEB 2.5 mg/3ml NEB ONE (01:19)
[2022-05-21] MEDS ORDERED: PRED20TA2 PO (01:27)
[2022-05-21] MEDS ORDERED: ALBUAER3 IN (01:27)
== END 2022-05-21 01:30 | disposition home or self-care (01) ==
LOC: EDBD 23:39 → ER 23:39
DX: J45.901 Unspecified asthma with (acute) exacerbation (principal); F15.10 Other stimulant abuse, uncomplicated; F12.10 Cannabis abuse, uncomplicated
CPT/HCPCS: 94640; 96372; 99284; J2930; J7644

== ENCOUNTER 2022-07-26 17:36 | Inpatient (IN) | payer MEDICAID ==
[~2022-07-26] VITALS: Ht 182.9 cm; Wt 77.0 kg
[2022-07-26] MEDS ORDERED: DexAMETHasone SOD PHOS 10MG/1ML VIAL INJ IM ONE (18:00)
[2022-07-26] MEDS ORDERED: IPRATROPIUM BROM 0.5 MG/2.5ML INH SOL NEB ONE ×2 (18:00→22:15)
[2022-07-26] MEDS ORDERED: ALBUTEROL SULF 2.5 MG/0.5ML(0.5%) NEB SOLN NEB ONE ×2 (18:00→22:15)
[2022-07-26 18:37] LABS: Hemoglobin 15.6 g/dL (13.5-17.5)
[2022-07-26 18:39] LABS: Hematocrit 47.2 % (41.0-53.0); Mean Corpuscular Hemoglobin 29.1 pg (28.0-32.0); Red Blood Cells 5.37 10^6/uL (4.5-5.90); Red Cell Distribution Width 14.8 % (11.8-14.3); White Blood Cell 14.2 10^3/uL (4.4-10.8)
[2022-07-26 18:48] LABS: Band Neutrophils % (manual) 0; Basophils % (manual) 0 (0.0-2.0); Blast Cells 0; Metamyelocytes % 0; Myelocytes % 0; Promyelocytes % 0; Reactive Lymphocytes 0
[2022-07-26 18:55] LABS: Albumin 3.3 g/dL (3.4-5.0); Potassium 4.4 mmol/L (3.5-5.1)
[2022-07-26 19:00] LABS: BUN/Creatinine Ratio 8.6 (10.0-20.0); Bilirubin, Total 0.2 mg/dL (0.2-1.0); Total Protein 6.9 g/dL (6.4-8.2)
[2022-07-26 19:29] LABS: Eosinophils % (manual) 18 (0-7); Lymphocytes % (manual) 15 (10.0-50.0); Monocytes % (manual) 10 (0-12)
[2022-07-27] MEDS ORDERED: ALBU108A5 IN (01:11)
[2022-07-27] MEDS ORDERED: ALBUTEROL SULF 2.5 MG/0.5ML(0.5%) NEB SOLN NEB ONE ×2 (02:45)
[2022-07-27] MEDS ORDERED: AZITHROMYCIN 500MG/ 250ML 250 ML IV ONE (02:45)
[2022-07-27] MEDS: cefTRIAXone 1GM/50ML D5W 50 ML IV ONE ×2 (03:22→03:30)
[2022-07-27 03:50] LABS: Urine Bacteria NONE SEEN /hpf (None Seen); Urine Blood Negative /uL (Negative); Urine Mucus FEW (None Seen); Urine WBC 1 /hpf (0 - 3)
[2022-07-27] MEDS ORDERED: DOCUSATE SOD 100 MG CAP PO PRN (04:00)
[2022-07-27] MEDS ORDERED: ACETAMINOPHEN 325 MG TAB PO PRN (04:00)
[2022-07-27] MEDS ORDERED: HYDROcodone-ACET 5/325MG TAB PO PRN (04:00)
[2022-07-27] MEDS ORDERED: NITROGLYCERIN 0.4 MG SL TAB SL PRN (04:00)
[2022-07-27] MEDS ORDERED: ONDANSETRON HCL 4 MG/2 ML VIAL IV PRN (04:00)
[2022-07-27] MEDS ORDERED: MORPHINE SULFATE INJ 2 MG/ml SYRG IV PRN (04:00)
[2022-07-27 04:20] LABS: Alcohol, Urine < 3.0 mg/dL (0-10); Amphetamine Screen, Urine POSITIVE (NEGATIVE); Barbiturate Scree,Urine NEGATIVE (NEGATIVE); Benzodiazephine Screen, Urine NEGATIVE (NEGATIVE); Cannabinoid Screen, Urine NEGATIVE (NEGATIVE); Cocaine Screen, Urine NEGATIVE (NEGATIVE)
[2022-07-27 04:28] LABS: Opiate Scree,Urine NEGATIVE (NEGATIVE); Phencyclidine Screen, Urine NEGATIVE (NEGATIVE)
[2022-07-27 06:09] LABS: Basophils # (auto) 0 10 ^3/uL (0-0.2); Basophils % (auto) 0.4 % (0.0-2.0); Eosinophils # (auto) 0 10 ^3/uL (0-0.8); Eosinophils % (auto) 0.1 % (0.0-7.0); Hematocrit 44.7 % (41.0-53.0); Hemoglobin 14.9 g/dL (13.5-17.5); Lymphocytes # (auto) 0.6 10 ^3/uL (0.4-5.4); Mean Corpuscular Hemoglobin 29.2 pg (28.0-32.0); Mean Corpuscular Hgb Conc. 33.4 g/dL (32.0-36.0); Mean Corpuscular Volume 87.4 fL (80.0-100.0); Monocytes # (auto) 0.1 10 ^3/uL (0-1.3); Monocytes % (auto) 0.7 % (0.0-12.0); Neutrophils # (auto) 7.3 10 ^3/uL (1.6-8.6); Neutrophils % (auto) 91.8 % (37.0-80.0); Nucleated Red Blood Cells % 0.1 %; Red Blood Cells 5.11 10^6/uL (4.5-5.90); Red Cell Distribution Width 14.4 % (11.8-14.3)
[2022-07-27] MEDS: SODIUM CHLOR 0.9% PF (SALINE LOCK) 10ML VIAL/SYR IV SCH ×3 (06:11→22:01)
[2022-07-27] MEDS: methylPREDNISolone SOD SUCC 40 MG/ML VL IV SCH ×3 (06:13→22:01)
[2022-07-27 06:25] LABS: Potassium 4.3 mmol/L (3.5-5.1)
[2022-07-27 06:30] LABS: BUN/Creatinine Ratio 8.7 (10.0-20.0); Calcium 8.8 mg/dL (8.5-10.1)
[2022-07-27 06:48] LABS: Albumin 3.1 g/dL (3.4-5.0); Bilirubin, Total 0.2 mg/dL (0.2-1.0); Total Protein 7.3 g/dL (6.4-8.2)
[2022-07-27] MEDS: cefTRIAXone 1GM/50ML D5W 50 ML IV SCH (09:42)
[2022-07-27] MEDS: AZITHROMYCIN 500MG/ 250ML 250 ML IV SCH (09:42)
[2022-07-27] MEDS: ENOXAPARIN SOD 40 MG/0.4 ML SYRINGE SC SCH (09:43)
[2022-07-27] MEDS ORDERED: ASPirin 81 mg TAB PO SCH (10:00)
[2022-07-27] MEDS: FAMOTIDINE (10MG/ML) 2ML VL IV SCH ×2 (10:29→22:01)
[2022-07-27 11:03] VITALS: BP 129/71
[2022-07-27] MEDS: IPRATROPIUM BROM 0.5 MG/2.5ML INH SOL NEB PRN (13:36)
[2022-07-27] MEDS: ALBUTEROL SULF 2.5 MG/0.5ML(0.5%) NEB SOLN NEB PRN (13:36)
[2022-07-27 14:20] VITALS: BP 119/74
[2022-07-27 17:00] VITALS: BP 116/74
[2022-07-27 22:00] VITALS: BP 129/60
[2022-07-28] MEDS: IPRATROPIUM BROM 0.5 MG/2.5ML INH SOL NEB PRN (04:34)
[2022-07-28] MEDS: ALBUTEROL SULF 2.5 MG/0.5ML(0.5%) NEB SOLN NEB PRN (04:34)
[2022-07-28 05:00] VITALS: BP 115/65
[2022-07-28 05:46] LABS: Eosinophils # (auto) 0 10 ^3/uL (0-0.8); Lymphocytes # (auto) 1.3 10 ^3/uL (0.4-5.4); Lymphocytes % (auto) 5.4 % (10.0-50.0); Monocytes # (auto) 0.5 10 ^3/uL (0-1.3); White Blood Cell 24.8 10^3/uL (4.4-10.8)
[2022-07-28 05:50] LABS: Basophils # (auto) 0 10 ^3/uL (0-0.2); Basophils % (auto) 0.1 % (0.0-2.0); Hematocrit 43.9 % (41.0-53.0); Hemoglobin 14.6 g/dL (13.5-17.5); Mean Corpuscular Hemoglobin 28.9 pg (28.0-32.0); Mean Corpuscular Hgb Conc. 33.2 g/dL (32.0-36.0); Neutrophils # (auto) 22.9 10 ^3/uL (1.6-8.6); Neutrophils % (auto) 92.5 % (37.0-80.0); Nucleated Red Blood Cells % 0.1 %; Red Blood Cells 5.05 10^6/uL (4.5-5.90); Red Cell Distribution Width 14.7 % (11.8-14.3)
[2022-07-28 05:58] LABS: Calcium 8.7 mg/dL (8.5-10.1); Potassium 4.4 mmol/L (3.5-5.1)
[2022-07-28] MEDS ORDERED: methylPREDNISolone SOD SUCC 125 MG/2 ML VL ONE (05:58)
[2022-07-28] MEDS: methylPREDNISolone SOD SUCC 40 MG/ML VL IV SCH (05:59)
[2022-07-28] MEDS: SODIUM CHLOR 0.9% PF (SALINE LOCK) 10ML VIAL/SYR IV SCH (05:59)
[2022-07-28] MEDS ORDERED: IPRATROPIUM BROM 0.5 MG/2.5ML INH SOL NEB SCH (06:00)
[2022-07-28] MEDS ORDERED: ALBUTEROL SULF 2.5 MG/0.5ML(0.5%) NEB SOLN NEB SCH ×2 (06:00→12:00)
[2022-07-28 06:01] LABS: BUN/Creatinine Ratio 25.5 (10.0-20.0)
[2022-07-28 06:04] LABS: Bilirubin, Total 0.4 mg/dL (0.2-1.0); Total Protein 7.4 g/dL (6.4-8.2)
[2022-07-28] MEDS ORDERED: IPRATROPIUM BROM 0.5 MG/2.5ML INH SOL ONE (06:28)
[2022-07-28] MEDS ORDERED: ALBUTEROL SULF 2.5 MG/0.5ML(0.5%) NEB SOLN ONE (06:28)
[2022-07-28 08:48] VITALS: BP 119/79
[2022-07-28] MEDS: cefTRIAXone 1GM/50ML D5W 50 ML IV SCH (08:58)
[2022-07-28] MEDS: ENOXAPARIN SOD 40 MG/0.4 ML SYRINGE SC SCH (09:32)
[2022-07-28] MEDS: AZITHROMYCIN 500MG/ 250ML 250 ML IV SCH (10:19)
[2022-07-28] MEDS: FAMOTIDINE (10MG/ML) 2ML VL IV SCH (10:19)
[2022-07-28] MEDS ORDERED: PRED20TA2 PO (11:32)
[2022-07-28] MEDS: IPRATROPIUM BROM 0.5 MG/2.5ML INH SOL NEB SCH ×2 (12:03→12:28)
[2022-07-28 13:03] VITALS: BP 111/49
[2022-07-28 13:55] VITALS: BP 111/49
== END 2022-07-28 14:00 | disposition home or self-care (01) | DRG 140 ==
LOC: ER 17:36 → TELE 07-27 04:08 → TELE-WESTW 07-27 14:54
PROVIDERS: ADMIT Nurse Practitioner Family; ATTEND Internal Medicine Pulmonary Disease
DX: J44.1 Chronic obstructive pulmonary disease with (acute) exacerbation (principal); J96.01 Acute respiratory failure with hypoxia; F41.9 Anxiety disorder, unspecified; J45.901 Unspecified asthma with (acute) exacerbation; D72.829 Elevated white blood cell count, unspecified; D75.839 Thrombocytosis, unspecified
CPT/HCPCS: 36415; 71045; 80053; 80307; 81001; 82962; 85007; 85025; 85027; 94640; 96365; 96367; 96372; G0378; J0696; J1100; J3490

== ENCOUNTER 2022-09-16 08:33 | Emergency (ER) | payer MEDICAID ==
[~2022-09-16] VITALS: Ht 182.9 cm; Wt 76.6 kg
[~2022-09-16 08:33] MED LIST changes: -AZIT1POW PO; -AZIT250T8 PO; -CEPH-37 PO; -CLIN300C8 PO; -DEXA6TAB6 PO; -METH4PAK PO; -METH4TAB47 PO; -TRIA0.1O TOP
[2022-09-16] MEDS ORDERED: IPRATROPIUM BROM 0.5 MG/2.5ML INH SOL NEB ONE (08:45)
[2022-09-16] MEDS ORDERED: ALBUTEROL SULF 2.5 MG/0.5ML(0.5%) NEB SOLN NEB ONE ×2 (08:45→09:30)
[2022-09-16 09:05] VITALS: BP 121/63
[2022-09-16] MEDS ORDERED: DexAMETHasone SOD PHOS 10MG/1ML VIAL INJ IM ONE (09:30)
[2022-09-16] MEDS ORDERED: PRED20TA2 PO (09:58)
[2022-09-16] MEDS ORDERED: ALBUAER3 IN (09:58)
== END 2022-09-16 10:07 | disposition home or self-care (01) ==
LOC: ER 08:33
DX: J45.901 Unspecified asthma with (acute) exacerbation (principal); F12.90 Cannabis use, unspecified, uncomplicated; F15.90 Other stimulant use, unspecified, uncomplicated
CPT/HCPCS: 71046; 94640; 96372; 99284; J1100; J7644

== ENCOUNTER 2022-12-17 05:58 | Inpatient (IN) | payer MEDICAID ==
[2022-12-17] VITALS (7 sets, daily range): BP systolic 134; BP diastolic 70; PULSE 82–102; RESP 18–22; TEMP 97.6; O2SAT 92–99
[~2022-12-17] VITALS: Ht 182.9 cm; Wt 75.1 kg
[2022-12-17 06:26] LABS: Basophils # (auto) 0.1 10 ^3/uL (0-0.2); Basophils % (auto) 0.6 % (0.0-2.0); Eosinophils # (auto) 1.8 10 ^3/uL (0-0.8); Eosinophils % (auto) 12.8 % (0.0-7.0); Hematocrit 44.2 % (41.0-53.0); Hemoglobin 14.9 g/dL (13.5-17.5); Lymphocytes # (auto) 2.7 10 ^3/uL (0.4-5.4); Lymphocytes % (auto) 19.6 % (10.0-50.0); Mean Corpuscular Hemoglobin 29.7 pg (28.0-32.0); Mean Corpuscular Hgb Conc. 33.8 g/dL (32.0-36.0); Mean Corpuscular Volume 88.1 fL (80.0-100.0); Monocytes # (auto) 1.5 10 ^3/uL (0-1.3); Monocytes % (auto) 10.8 % (0.0-12.0); Neutrophils # (auto) 7.7 10 ^3/uL (1.6-8.6); Neutrophils % (auto) 56.2 % (37.0-80.0); Red Blood Cells 5.02 10^6/uL (4.5-5.90); Red Cell Distribution Width 14.1 % (11.8-14.3); White Blood Cell 13.7 10^3/uL (4.4-10.8)
[2022-12-17 06:41] LABS: INR 1.08 (0.9-1.15); Partial Thromboplastin Time 26.7 SEC (24.5-34.5); Prothrombin Time 11.3 sec (9.3-11.8)
[2022-12-17 06:48] LABS: Alanine Aminotransferase 17 U/L (7-40); Albumin 4.1 g/dL (3.2-4.8); Alkaline Phosphatase 93 U/L (46-116); Anion Gap 5 (5-15); Aspartate Aminotransferase 13 U/L (13-40); BUN/Creatinine Ratio 11.1 (10.0-20.0); Bilirubin, Total 0.6 mg/dL (0.2-1.0); Blood Urea Nitrogen 11 mg/dL (9-23); Calcium 9.1 mg/dL (8.7-10.4); Carbon Dioxide 27 mmol/L (20-30); Chloride 108 mmol/L (98-107); Glucose 96 mg/dL (74-106); Potassium 3.5 mmol/L (3.5-5.1); Sodium 140 mmol/L (136-145)
[2022-12-17] MEDS ORDERED: ALBUTEROL SULF 2.5 MG/0.5ML(0.5%) NEB SOLN ONE (07:13)
[2022-12-17] MEDS ORDERED: DexAMETHasone SOD PHOS 10MG/1ML VIAL INJ IV ONE (07:15)
[2022-12-17] MEDS ORDERED: ALBUTEROL SULF 2.5 MG/0.5ML(0.5%) NEB SOLN NEB ONE (07:15)
[2022-12-17 07:34] LABS: Base Excess -0.4 mmol/L (-2.0-2.0)
[2022-12-17] MEDS ORDERED: ACETAMINOPHEN 325 MG TAB PO PRN (08:30)
[2022-12-17] MEDS ORDERED: DOCUSATE SOD 100 MG CAP PO PRN (08:30)
[2022-12-17] MEDS ORDERED: HYDROcodone-ACET 5/325MG TAB PO PRN (08:30)
[2022-12-17] MEDS ORDERED: ONDANSETRON HCL 4 MG/2 ML VIAL IV PRN (08:30)
[2022-12-17] MEDS ORDERED: NITROGLYCERIN 0.4 MG SL TAB SL PRN (09:00)
[2022-12-17] MEDS ORDERED: MORPHINE SULFATE INJ 2 MG/ml SYRG IV PRN (09:00)
[2022-12-17] MEDS: FAMOTIDINE (10MG/ML) 2ML VL IV SCH ×2 (10:26→22:46)
[2022-12-17] MEDS: SODIUM CHLOR 0.9% PF (SALINE LOCK) 10ML VIAL/SYR IV SCH ×2 (14:03→22:46)
[2022-12-17] MEDS: methylPREDNISolone SOD SUCC 40 MG/ML VL IV SCH ×2 (14:07→22:46)
[2022-12-17 14:52] LABS: Amphetamine Screen, Urine Pos (NEGATIVE); Barbiturate Scree,Urine Neg (NEGATIVE); Benzodiazephine Screen, Urine Neg (NEGATIVE); Cannabinoid Screen, Urine Pos (NEGATIVE); Cocaine Screen, Urine Neg (NEGATIVE); Opiate Scree,Urine Neg (NEGATIVE); Phencyclidine Screen, Urine Neg (NEGATIVE)
[2022-12-17] MEDS: IPRATROPIUM BROM 0.5 MG/2.5ML INH SOL NEB PRN (18:16)
[2022-12-17] MEDS: ALBUTEROL SULF 2.5 MG/0.5ML(0.5%) NEB SOLN NEB PRN (18:16)
[2022-12-18] VITALS (11 sets, daily range): BP systolic 101–134; BP diastolic 43–72; PULSE 67–88; RESP 16–18; TEMP 97.6–98.6; O2SAT 92–99
[2022-12-18 05:52] LABS: Basophils # (auto) 0 10 ^3/uL (0-0.2); Eosinophils # (auto) 0 10 ^3/uL (0-0.8); Hemoglobin 14.3 g/dL (13.5-17.5); Lymphocytes # (auto) 0.8 10 ^3/uL (0.4-5.4); Neutrophils # (auto) 14.7 10 ^3/uL (1.6-8.6)
[2022-12-18] MEDS: SODIUM CHLOR 0.9% PF (SALINE LOCK) 10ML VIAL/SYR IV SCH ×3 (05:54→22:00)
[2022-12-18] MEDS: methylPREDNISolone SOD SUCC 40 MG/ML VL IV SCH ×2 (05:54→16:00)
[2022-12-18 05:56] LABS: Basophils % (auto) 0.2 % (0.0-2.0); Hematocrit 42.5 % (41.0-53.0); Lymphocytes % (auto) 4.7 % (10.0-50.0); Mean Corpuscular Hemoglobin 29.9 pg (28.0-32.0); Mean Corpuscular Hgb Conc. 33.6 g/dL (32.0-36.0); Monocytes # (auto) 0.5 10 ^3/uL (0-1.3); Monocytes % (auto) 3.1 % (0.0-12.0); Nucleated Red Blood Cells % 0.1 %; Red Blood Cells 4.78 10^6/uL (4.5-5.90); Red Cell Distribution Width 14.1 % (11.8-14.3)
[2022-12-18 06:09] LABS: Alanine Aminotransferase 13 U/L (7-40); Alkaline Phosphatase 85 U/L (46-116); Anion Gap 7 (5-15); Aspartate Aminotransferase 15 U/L (13-40); Bilirubin, Total 0.4 mg/dL (0.2-1.0); Blood Urea Nitrogen 18 mg/dL (9-23); Calcium 9.4 mg/dL (8.5-10.1); Carbon Dioxide 26 mmol/L (20-30); Chloride 110 mmol/L (98-107); Glucose 142 mg/dL (74-106); Potassium 4.3 mmol/L (3.5-5.1); Sodium 143 mmol/L (136-145)
[2022-12-18] MEDS: FAMOTIDINE (10MG/ML) 2ML VL IV SCH ×2 (09:51→22:00)
[2022-12-18] MEDS: MAGNESIUM SULFATE 1GM/100ML 100 ML IV SCH (16:00)
[2022-12-18] MEDS: ALBUTEROL SULF 2.5 MG/0.5ML(0.5%) NEB SOLN NEB PRN (16:11)
[2022-12-18] MEDS: IPRATROPIUM BROM 0.5 MG/2.5ML INH SOL NEB PRN (16:11)
[2022-12-18] MEDS: predniSONE 20 MG TAB PO SCH (22:29)
[2022-12-19] VITALS (7 sets, daily range): BP systolic 101–117; BP diastolic 46–64; PULSE 63–84; RESP 16–22; TEMP 97.7–98.2; O2SAT 93–99
[2022-12-19 06:47] LABS: Basophils # (auto) 0 10 ^3/uL (0-0.2); Basophils % (auto) 0.1 % (0.0-2.0); Eosinophils # (auto) 0 10 ^3/uL (0-0.8); Hematocrit 42.7 % (41.0-53.0); Hemoglobin 14.5 g/dL (13.5-17.5); Lymphocytes % (auto) 5.7 % (10.0-50.0); Mean Corpuscular Hemoglobin 30.1 pg (28.0-32.0); Mean Corpuscular Hgb Conc. 33.8 g/dL (32.0-36.0); Monocytes # (auto) 0.6 10 ^3/uL (0-1.3); Monocytes % (auto) 3.6 % (0.0-12.0); Neutrophils # (auto) 15.6 10 ^3/uL (1.6-8.6); Neutrophils % (auto) 90.6 % (37.0-80.0); Red Cell Distribution Width 14.3 % (11.8-14.3); White Blood Cell 17.2 10^3/uL (4.4-10.8)
[2022-12-19] MEDS: ALBUTEROL SULF 2.5 MG/0.5ML(0.5%) NEB SOLN NEB PRN (06:49)
[2022-12-19] MEDS: IPRATROPIUM BROM 0.5 MG/2.5ML INH SOL NEB PRN (06:49)
[2022-12-19 07:02] LABS: Anion Gap 6 (5-15); Carbon Dioxide 27 mmol/L (20-30); Chloride 107 mmol/L (98-107); Potassium 4.4 mmol/L (3.5-5.1); Sodium 140 mmol/L (136-145)
[2022-12-19 07:04] LABS: Calcium 9.3 mg/dL (8.5-10.1)
[2022-12-19 07:08] LABS: BUN/Creatinine Ratio 22.2 (10.0-20.0); Blood Urea Nitrogen 22 mg/dL (9-23); Glucose 119 mg/dL (74-106)
[2022-12-19] MEDS: FAMOTIDINE (10MG/ML) 2ML VL IV SCH (10:00)
[2022-12-19] MEDS: predniSONE 20 MG TAB PO SCH (10:02)
[2022-12-19 12:48] LABS: COVID19 ANTIGEN SOFIA FIA NEGATIVE (NEGATIVE); Rapid Influenza A Negative (Negative); Rapid Influenza B Negative (Negative)
[2022-12-19] MEDS: SODIUM CHLOR 0.9% PF (SALINE LOCK) 10ML VIAL/SYR IV SCH (13:10)
== END 2022-12-19 14:15 | disposition left against medical advice (07) | DRG 141 ==
LOC: ER 05:58 → EDBD 05:58 → TELE 08:59 → TELE-EAST 21:48
PROVIDERS: ADMIT Internal Medicine Pulmonary Disease; ATTEND Internal Medicine Pulmonary Disease
DX: J45.901 Unspecified asthma with (acute) exacerbation (principal); D72.829 Elevated white blood cell count, unspecified; F15.10 Other stimulant abuse, uncomplicated; F17.200 Nicotine dependence, unspecified, uncomplicated; Z20.822 Contact with and (suspected) exposure to COVID-19; Z53.21 Procedure and treatment not carried out due to patient leaving prior to being seen by health care provider; Z71.51 Drug abuse counseling and surveillance of drug abuser
CPT/HCPCS: 36415; 36600; 71045; 71250; 80048; 80053; 80307; 82805; 83880; 84484; 85025; 85610; 85730; 87081; 87426; 87804; 93005; 94640; 96374; 96375; G0378; J1100; J3490

== ENCOUNTER 2022-12-29 03:45 | Inpatient (IN) | payer MEDICAID ==
[2022-12-29] VITALS (11 sets, daily range): BP systolic 110–129; BP diastolic 58–75; PULSE 75–113; RESP 17–26; TEMP 98.2–98.6; O2SAT 91–100
[~2022-12-29] VITALS: Ht 182.9 cm; Wt 77.7 kg
[2022-12-29] MEDS ORDERED: ALBUTEROL SULF 2.5 MG/0.5ML(0.5%) NEB SOLN ONE (03:59)
[2022-12-29] MEDS ORDERED: ALBUTEROL SULF 2.5 MG/0.5ML(0.5%) NEB SOLN NEB ONE (04:00)
[2022-12-29] MEDS ORDERED: IPRATROPIUM BROM 0.5 MG/2.5ML INH SOL NEB ONE (04:00)
[2022-12-29] MEDS ORDERED: ACETAMINOPHEN 325 MG TAB PO ONE (04:15)
[2022-12-29] MEDS ORDERED: ONDANSETRON HCL 4 MG/2 ML VIAL IV ONE (04:15)
[2022-12-29] MEDS ORDERED: cefTRIAXone 1GM/50ML D5W 50 ML IV ONE (04:15)
[2022-12-29] MEDS ORDERED: methylPREDNISolone SOD SUCC 40 MG/ML VL IV ONE (04:15)
[2022-12-29] MEDS ORDERED: TERBUTALINE SULFATE 1 MG/ML 1ML VIAL SC ONE (04:15)
[2022-12-29] MEDS ORDERED: AZITHROMYCIN 500MG/ 250ML 250 ML IV ONE (04:15)
[2022-12-29] MEDS ORDERED: PANTOPRAZOLE 40 MG/10 ML VIAL INJ IV ONE (04:15)
[2022-12-29] MEDS ORDERED: SODIUM CHLORIDE 0.9% 1,000 ML IV ONE (04:15)
[2022-12-29] MEDS ORDERED: ALBUTEROL SULF 2.5 MG/0.5ML(0.5%) NEB SOLN HHN ONE ×2 (04:15)
[2022-12-29] MEDS ORDERED: IPRATROPIUM BROM 0.5 MG/2.5ML INH SOL HHN ONE ×2 (04:15)
[2022-12-29] MEDS ORDERED: LORazepam 2MG/ML-1ML VIAL IV ONE (04:30)
[2022-12-29 04:33] LABS: Basophils # (auto) 0.1 10 ^3/uL (0-0.2); Basophils % (auto) 0.5 % (0.0-2.0); Eosinophils % (auto) 12.1 % (0.0-7.0); Hematocrit 43.8 % (41.0-53.0); Hemoglobin 14.8 g/dL (13.5-17.5); Lymphocytes # (auto) 2.1 10 ^3/uL (0.4-5.4); Lymphocytes % (auto) 12.4 % (10.0-50.0); Mean Corpuscular Hemoglobin 30.1 pg (28.0-32.0); Mean Corpuscular Hgb Conc. 33.7 g/dL (32.0-36.0); Mean Corpuscular Volume 89.3 fL (80.0-100.0); Monocytes # (auto) 1.3 10 ^3/uL (0-1.3); Neutrophils # (auto) 11.2 10 ^3/uL (1.6-8.6); Red Blood Cells 4.91 10^6/uL (4.5-5.90); White Blood Cell 16.7 10^3/uL (4.4-10.8)
[2022-12-29 04:48] LABS: INR 1.03 (0.9-1.15); Partial Thromboplastin Time 25.5 SEC (24.5-34.5); Prothrombin Time 10.8 sec (9.3-11.8)
[2022-12-29 04:54] LABS: Base Excess 0.7 mmol/L (-2.0-2.0)
[2022-12-29] MEDS: MAGNESIUM SULFATE 1GM/100ML 100 ML IV SCH ×2 (04:55→05:43)
[2022-12-29 05:10] LABS: Alanine Aminotransferase 21 U/L (7-40); Albumin 3.7 g/dL (3.2-4.8); Alkaline Phosphatase 100 U/L (46-116); Anion Gap 8 (5-15); Aspartate Aminotransferase 26 U/L (13-40); Blood Urea Nitrogen 10 mg/dL (9-23); Calcium 8.8 mg/dL (8.5-10.1); Carbon Dioxide 27 mmol/L (20-30); Chloride 107 mmol/L (98-107); Glucose 120 mg/dL (74-106); Potassium 3.8 mmol/L (3.5-5.1); Sodium 142 mmol/L (136-145)
[2022-12-29 05:11] LABS: Bilirubin, Total 0.5 mg/dL (0.2-1.0); Total Protein 6.3 g/dL (5.7-8.2)
[2022-12-29] MEDS ORDERED: ONDANSETRON HCL 4 MG/2 ML VIAL IV PRN (06:30)
[2022-12-29] MEDS ORDERED: NITROGLYCERIN 0.4 MG SL TAB SL PRN (06:30)
[2022-12-29] MEDS ORDERED: IPRATROPIUM BROM 0.5 MG/2.5ML INH SOL NEB PRN ×3 (06:30→07:15)
[2022-12-29] MEDS ORDERED: TEMAZEPAM 15 MG CAP PO PRN (06:30)
[2022-12-29] MEDS ORDERED: MORPHINE SULFATE INJ 2 MG/ml SYRG IV PRN (06:30)
[2022-12-29] MEDS ORDERED: ACETAMINOPHEN 325 MG TAB PO PRN (06:30)
[2022-12-29 06:35] LABS: Magnesium 1.9 mg/dL (1.6-2.6)
[2022-12-29] MEDS: ALBUTEROL SULF 2.5 MG/0.5ML(0.5%) NEB SOLN NEB PRN ×2 (06:58→07:03)
[2022-12-29] MEDS ORDERED: LORazepam 2MG/ML-1ML VIAL IV PRN (08:45)
[2022-12-29] MEDS: methylPREDNISolone SOD SUCC 40 MG/ML VL IV SCH ×2 (10:20→21:23)
[2022-12-30] VITALS (13 sets, daily range): BP systolic 107–150; BP diastolic 56–75; PULSE 68–113; RESP 15–22; TEMP 97.7–98.5; O2SAT 93–99
[2022-12-30] MEDS ORDERED: VANCOMYCIN PER PHARMACY 0 MG IV SCH (03:30)
[2022-12-30] MEDS ORDERED: VANCOMYCIN 1GM/250ML 250 ML IV ONE (03:30)
[2022-12-30] MEDS: ALBUTEROL SULF 2.5 MG/0.5ML(0.5%) NEB SOLN NEB PRN (05:56)
[2022-12-30 06:27] LABS: Chloride 108 mmol/L (98-107); Potassium 4.3 mmol/L (3.5-5.1); Sodium 141 mmol/L (136-145)
[2022-12-30 06:28] LABS: Anion Gap 5 (5-15); Carbon Dioxide 28 mmol/L (20-30)
[2022-12-30 06:29] LABS: Calcium 8.7 mg/dL (8.5-10.1)
[2022-12-30 06:33] LABS: Glucose 109 mg/dL (74-106)
[2022-12-30 06:34] LABS: BUN/Creatinine Ratio 8.9 (10.0-20.0); Blood Urea Nitrogen 7 mg/dL (9-23)
[2022-12-30] MEDS: methylPREDNISolone SOD SUCC 40 MG/ML VL IV SCH ×2 (10:02→21:36)
[2022-12-30] MEDS: VANCOMYCIN 1GM/250ML 250 ML IV SCH ×3 (10:02→21:51)
[2022-12-30] MEDS ORDERED: ALBUTEROL SULF 2.5 MG/0.5ML(0.5%) NEB SOLN NEB SCH (12:00)
[2022-12-30] MEDS ORDERED: IPRATROPIUM BROM 0.5 MG/2.5ML INH SOL NEB SCH (12:00)
[2022-12-30] MEDS: ALBUTEROL SULF 2.5 MG/0.5ML(0.5%) NEB SOLN NEB SCH ×3 (13:57→21:57)
[2022-12-30] MEDS: IPRATROPIUM BROM 0.5 MG/2.5ML INH SOL NEB SCH ×3 (13:58→21:57)
[2022-12-30] MEDS: BUDESONIDE (INHALATION) 0.5 MG/2 ML NEB NEB SCH (21:57)
[2022-12-30 23:51] LABS: Urine Amorphous Crystal MOD /hpf (None Seen); Urine Bacteria FEW /hpf (None Seen); Urine Blood Negative /uL (Negative); Urine Clarity HAZY (Clear); Urine Color Yellow (Yellow); Urine Protein, UAD Negative (Negative); Urine Specific Gravity 1.022 (1.001-1.035); Urine WBC 2 /hpf (0 - 3)
[2022-12-30 23:55] LABS: Amphetamine Screen, Urine Neg (NEGATIVE); Barbiturate Scree,Urine Neg (NEGATIVE); Benzodiazephine Screen, Urine Neg (NEGATIVE); Cannabinoid Screen, Urine Neg (NEGATIVE); Cocaine Screen, Urine Neg (NEGATIVE); Opiate Scree,Urine Neg (NEGATIVE); Phencyclidine Screen, Urine Neg (NEGATIVE)
[2022-12-31] VITALS (17 sets, daily range): BP systolic 104–142; BP diastolic 48–71; PULSE 54–107; RESP 17–20; TEMP 97.4–98.1; O2SAT 91–100
[2022-12-31] MEDS: IPRATROPIUM BROM 0.5 MG/2.5ML INH SOL NEB SCH ×6 (02:00→21:38)
[2022-12-31] MEDS: ALBUTEROL SULF 2.5 MG/0.5ML(0.5%) NEB SOLN NEB SCH ×6 (02:00→21:38)
[2022-12-31] MEDS: VANCOMYCIN 1GM/250ML 250 ML IV SCH (05:05)
[2022-12-31 05:54] LABS: Basophils # (auto) 0 10 ^3/uL (0-0.2); Eosinophils # (auto) 0 10 ^3/uL (0-0.8); Hematocrit 40.7 % (41.0-53.0); Hemoglobin 13.5 g/dL (13.5-17.5); Lymphocytes # (auto) 0.9 10 ^3/uL (0.4-5.4); Lymphocytes % (auto) 5.1 % (10.0-50.0); Mean Corpuscular Hemoglobin 30.1 pg (28.0-32.0); Mean Corpuscular Hgb Conc. 33.2 g/dL (32.0-36.0); Mean Corpuscular Volume 90.5 fL (80.0-100.0); Monocytes # (auto) 0.4 10 ^3/uL (0-1.3); Monocytes % (auto) 2.5 % (0.0-12.0); Neutrophils # (auto) 15.4 10 ^3/uL (1.6-8.6); Neutrophils % (auto) 92.4 % (37.0-80.0); Nucleated Red Blood Cells % 0.1 %; Red Cell Distribution Width 13.9 % (11.8-14.3); White Blood Cell 16.7 10^3/uL (4.4-10.8)
[2022-12-31 06:05] LABS: Chloride 105 mmol/L (98-107); Potassium 4.3 mmol/L (3.5-5.1); Sodium 139 mmol/L (136-145)
[2022-12-31 06:06] LABS: Anion Gap 7 (5-15); Calcium 8.9 mg/dL (8.5-10.1); Carbon Dioxide 27 mmol/L (20-30)
[2022-12-31 06:11] LABS: BUN/Creatinine Ratio 14.8 (10.0-20.0); Blood Urea Nitrogen 13 mg/dL (9-23); Glucose 114 mg/dL (74-106)
[2022-12-31] MEDS: methylPREDNISolone SOD SUCC 40 MG/ML VL IV SCH ×2 (09:48→21:59)
[2022-12-31] MEDS: AZITHROMYCIN 250 MG TAB PO SCH (09:48)
[2022-12-31] MEDS: BUDESONIDE (INHALATION) 0.5 MG/2 ML NEB NEB SCH ×2 (09:49→21:38)
[2022-12-31] MEDS ORDERED: SODIUM CHLORIDE 0.9% 1,000 ML IV ONE (11:30)
[2022-12-31] MEDS: MAGNESIUM SULFATE 1GM/100ML 100 ML IV SCH ×2 (13:00→13:45)
[2022-12-31] MEDS: ceFAZolin 2 GM/D5W100ml 100 ML IV SCH ×2 (15:34→21:59)
[2023-01-01] VITALS (12 sets, daily range): BP systolic 125–135; BP diastolic 70–81; PULSE 65–95; RESP 17–20; TEMP 97.9–98; O2SAT 93–99
[2023-01-01] MEDS: IPRATROPIUM BROM 0.5 MG/2.5ML INH SOL NEB SCH ×6 (02:00→22:31)
[2023-01-01] MEDS: ALBUTEROL SULF 2.5 MG/0.5ML(0.5%) NEB SOLN NEB SCH ×6 (02:00→22:31)
[2023-01-01] MEDS: ceFAZolin 2 GM/D5W100ml 100 ML IV SCH ×3 (06:00→21:43)
[2023-01-01] MEDS: BUDESONIDE (INHALATION) 0.5 MG/2 ML NEB NEB SCH ×2 (10:00→17:46)
[2023-01-01] MEDS: methylPREDNISolone SOD SUCC 40 MG/ML VL IV SCH ×2 (10:00→21:43)
[2023-01-01] MEDS: AZITHROMYCIN 250 MG TAB PO SCH (10:00)
[2023-01-01] MEDS: MUPIROCIN 2% OINT 15gm or 22gm FOR MRSA NARES EACHNOSTRI SCH (21:44)
[2023-01-02] VITALS (14 sets, daily range): BP systolic 103–133; BP diastolic 57–82; PULSE 65–85; RESP 16–19; TEMP 97.6–98.1; O2SAT 95–100
[2023-01-02] MEDS: ALBUTEROL SULF 2.5 MG/0.5ML(0.5%) NEB SOLN NEB SCH ×7 (02:00→22:08)
[2023-01-02] MEDS: IPRATROPIUM BROM 0.5 MG/2.5ML INH SOL NEB SCH ×7 (02:00→22:08)
[2023-01-02] MEDS: ceFAZolin 2 GM/D5W100ml 100 ML IV SCH (06:09)
[2023-01-02 06:16] LABS: Basophils # (auto) 0 10 ^3/uL (0-0.2); Basophils % (auto) 0.2 % (0.0-2.0); Eosinophils # (auto) 0 10 ^3/uL (0-0.8); Eosinophils % (auto) 0.2 % (0.0-7.0); Hematocrit 42.9 % (41.0-53.0); Hemoglobin 13.9 g/dL (13.5-17.5); Lymphocytes # (auto) 2.8 10 ^3/uL (0.4-5.4); Lymphocytes % (auto) 17.2 % (10.0-50.0); Mean Corpuscular Hemoglobin 29.7 pg (28.0-32.0); Mean Corpuscular Hgb Conc. 32.3 g/dL (32.0-36.0); Mean Corpuscular Volume 91.8 fL (80.0-100.0); Monocytes # (auto) 1.2 10 ^3/uL (0-1.3); Monocytes % (auto) 7.4 % (0.0-12.0); Red Blood Cells 4.68 10^6/uL (4.5-5.90); Red Cell Distribution Width 14.2 % (11.8-14.3)
[2023-01-02 06:30] LABS: Anion Gap 7 (5-15); Carbon Dioxide 28 mmol/L (20-30); Chloride 105 mmol/L (98-107); Potassium 4.3 mmol/L (3.5-5.1); Sodium 140 mmol/L (136-145)
[2023-01-02 06:31] LABS: Calcium 8.8 mg/dL (8.7-10.4)
[2023-01-02 06:36] LABS: BUN/Creatinine Ratio 15.2 (10.0-20.0); Blood Urea Nitrogen 14 mg/dL (9-23)
[2023-01-02 07:07] LABS: Glucose 91 mg/dL (74-106)
[2023-01-02] MEDS ORDERED: VANCOMYCIN PER PHARMACY 0 MG IV SCH (11:15)
[2023-01-02] MEDS: BUDESONIDE (INHALATION) 0.5 MG/2 ML NEB NEB SCH ×2 (11:23→19:15)
[2023-01-02] MEDS: AZITHROMYCIN 250 MG TAB PO SCH (11:40)
[2023-01-02] MEDS: MUPIROCIN 2% OINT 15gm or 22gm FOR MRSA NARES EACHNOSTRI SCH ×2 (11:43→22:13)
[2023-01-02] MEDS: ALPRAZolam 0.25 MG TAB PO PRN (13:16)
[2023-01-02] MEDS: VANCOMYCIN 1GM/250ML 250 ML IV SCH ×2 (13:16→19:50)
[2023-01-03] VITALS (11 sets, daily range): BP systolic 101–121; BP diastolic 44–72; PULSE 64–102; RESP 16–22; TEMP 97.8–98.5; O2SAT 94–100
[2023-01-03] MEDS: ALBUTEROL SULF 2.5 MG/0.5ML(0.5%) NEB SOLN NEB SCH ×6 (02:00→19:24)
[2023-01-03] MEDS: IPRATROPIUM BROM 0.5 MG/2.5ML INH SOL NEB SCH ×6 (02:00→19:24)
[2023-01-03] MEDS: VANCOMYCIN 1GM/250ML 250 ML IV SCH ×3 (04:09→20:10)
[2023-01-03 06:14] LABS: Chloride 105 mmol/L (98-107); Potassium 3.5 mmol/L (3.5-5.1); Sodium 140 mmol/L (136-145)
[2023-01-03 06:16] LABS: Calcium 8.4 mg/dL (8.5-10.1)
[2023-01-03 06:18] LABS: Basophils # (auto) 0 10 ^3/uL (0-0.2); Basophils % (auto) 0.2 % (0.0-2.0); Eosinophils # (auto) 0.9 10 ^3/uL (0-0.8); Eosinophils % (auto) 10.1 % (0.0-7.0); Hematocrit 42.2 % (41.0-53.0); Hemoglobin 14.3 g/dL (13.5-17.5); Lymphocytes # (auto) 3.9 10 ^3/uL (0.4-5.4); Lymphocytes % (auto) 43.5 % (10.0-50.0); Mean Corpuscular Hemoglobin 30.4 pg (28.0-32.0); Mean Corpuscular Hgb Conc. 33.8 g/dL (32.0-36.0); Mean Corpuscular Volume 90.2 fL (80.0-100.0); Monocytes # (auto) 0.6 10 ^3/uL (0-1.3); Monocytes % (auto) 7.1 % (0.0-12.0); Neutrophils # (auto) 3.5 10 ^3/uL (1.6-8.6); Neutrophils % (auto) 39.1 % (37.0-80.0); Red Blood Cells 4.68 10^6/uL (4.5-5.90); Red Cell Distribution Width 14.1 % (11.8-14.3); White Blood Cell 9.1 10^3/uL (4.4-10.8)
[2023-01-03 06:21] LABS: BUN/Creatinine Ratio 15.9 (10.0-20.0); Blood Urea Nitrogen 17 mg/dL (9-23); Glucose 140 mg/dL (74-106)
[2023-01-03 06:37] LABS: Anion Gap 6 (5-15); Carbon Dioxide 29 mmol/L (20-30)
[2023-01-03] MEDS: methylPREDNISolone SOD SUCC 40 MG/ML VL IV SCH (09:59)
[2023-01-03] MEDS: AZITHROMYCIN 250 MG TAB PO SCH (09:59)
[2023-01-03] MEDS: MUPIROCIN 2% OINT 15gm or 22gm FOR MRSA NARES EACHNOSTRI SCH ×2 (10:05→22:12)
[2023-01-03] MEDS: BUDESONIDE (INHALATION) 0.5 MG/2 ML NEB NEB SCH ×2 (10:15→19:24)
[2023-01-03] MEDS: ALPRAZolam 0.25 MG TAB PO PRN (20:09)
[2023-01-04] VITALS (17 sets, daily range): BP systolic 108–126; BP diastolic 57–74; PULSE 67–95; RESP 16–20; TEMP 97.8–98.1; O2SAT 94–100
[2023-01-04] MEDS: VANCOMYCIN 1GM/250ML 250 ML IV SCH ×3 (04:06→20:52)
[2023-01-04 05:15] LABS: Anion Gap 4 (5-15); Carbon Dioxide 30 mmol/L (20-30); Chloride 103 mmol/L (98-107); Potassium 3.9 mmol/L (3.5-5.1); Sodium 137 mmol/L (136-145)
[2023-01-04 05:16] LABS: Calcium 8.7 mg/dL (8.7-10.4)
[2023-01-04 05:20] LABS: Glucose 88 mg/dL (74-106)
[2023-01-04 05:21] LABS: BUN/Creatinine Ratio 26.9 (10.0-20.0); Blood Urea Nitrogen 21 mg/dL (9-23)
[2023-01-04] MEDS: IPRATROPIUM BROM 0.5 MG/2.5ML INH SOL NEB SCH ×3 (07:50→19:18)
[2023-01-04] MEDS: BUDESONIDE (INHALATION) 0.5 MG/2 ML NEB NEB SCH ×2 (07:50→19:18)
[2023-01-04] MEDS: ALBUTEROL SULF 2.5 MG/0.5ML(0.5%) NEB SOLN NEB SCH ×3 (07:50→19:18)
[2023-01-04] MEDS: methylPREDNISolone SOD SUCC 40 MG/ML VL IV SCH (09:30)
[2023-01-04] MEDS: AZITHROMYCIN 250 MG TAB PO SCH (09:30)
[2023-01-04] MEDS: MUPIROCIN 2% OINT 15gm or 22gm FOR MRSA NARES EACHNOSTRI SCH ×2 (09:33→20:56)
[2023-01-04] MEDS: ALPRAZolam 0.25 MG TAB PO PRN (22:30)
[2023-01-05] MEDS: VANCOMYCIN 1GM/250ML 250 ML IV SCH (04:35)
[2023-01-05 05:00] VITALS: BP_SYST 101; BP_SYST 92; BP_DIAS 38; BP_DIAS 52; PULSE 73; RESP 16; TEMP 97.7; O2SAT 95
[2023-01-05 06:28] LABS: Basophils # (auto) 0.1 10 ^3/uL (0-0.2); Basophils % (auto) 0.4 % (0.0-2.0); Eosinophils # (auto) 0 10 ^3/uL (0-0.8); Eosinophils % (auto) 0.3 % (0.0-7.0); Hematocrit 39.6 % (41.0-53.0); Hemoglobin 13.2 g/dL (13.5-17.5); Lymphocytes # (auto) 2.1 10 ^3/uL (0.4-5.4); Lymphocytes % (auto) 14.8 % (10.0-50.0); Mean Corpuscular Hemoglobin 30.1 pg (28.0-32.0); Mean Corpuscular Hgb Conc. 33.3 g/dL (32.0-36.0); Mean Corpuscular Volume 90.5 fL (80.0-100.0); Monocytes # (auto) 0.7 10 ^3/uL (0-1.3); Neutrophils # (auto) 11.2 10 ^3/uL (1.6-8.6); Neutrophils % (auto) 79.5 % (37.0-80.0); Nucleated Red Blood Cells % 0.1 %; Red Blood Cells 4.38 10^6/uL (4.5-5.90); Red Cell Distribution Width 14.1 % (11.8-14.3); White Blood Cell 14.1 10^3/uL (4.4-10.8)
[2023-01-05 06:50] LABS: Chloride 105 mmol/L (98-107); Potassium 3.7 mmol/L (3.5-5.1); Sodium 140 mmol/L (136-145)
[2023-01-05 06:51] LABS: Anion Gap 7 (5-15); Calcium 8.5 mg/dL (8.5-10.1); Carbon Dioxide 28 mmol/L (20-30)
[2023-01-05 06:53] VITALS: PULSE 72; RESP 16; O2SAT 98
[2023-01-05] MEDS: IPRATROPIUM BROM 0.5 MG/2.5ML INH SOL NEB SCH ×2 (06:53→11:47)
[2023-01-05] MEDS: BUDESONIDE (INHALATION) 0.5 MG/2 ML NEB NEB SCH (06:53)
[2023-01-05] MEDS: ALBUTEROL SULF 2.5 MG/0.5ML(0.5%) NEB SOLN NEB SCH ×2 (06:53→11:47)
[2023-01-05 06:56] LABS: BUN/Creatinine Ratio 17.6 (10.0-20.0); Blood Urea Nitrogen 15 mg/dL (9-23); Glucose 147 mg/dL (74-106)
[2023-01-05 07:03] VITALS: PULSE 70; RESP 16; O2SAT 100
[2023-01-05 09:00] VITALS: BP 117/48; PULSE 60; RESP 16; TEMP 97.7; O2SAT 97
[2023-01-05] MEDS: AZITHROMYCIN 250 MG TAB PO SCH (09:39)
[2023-01-05] MEDS: methylPREDNISolone SOD SUCC 40 MG/ML VL IV SCH (09:39)
[2023-01-05] MEDS: MUPIROCIN 2% OINT 15gm or 22gm FOR MRSA NARES EACHNOSTRI SCH (09:43)
[2023-01-05] MEDS ORDERED: ALB5IS NEB (10:52)
[2023-01-05] MEDS ORDERED: PRED20TA2 PO (10:52)
[2023-01-05] MEDS ORDERED: ALBUAER3 IN (10:52)
[2023-01-05] MEDS ORDERED: BUDE1AER5 IN (10:52)
[2023-01-05] MEDS ORDERED: DOXY1CAP57 PO (10:52)
[2023-01-05 11:47] VITALS: PULSE 74; RESP 16; O2SAT 100
[2023-01-05 11:53] VITALS: PULSE 74; RESP 16; O2SAT 100
== END 2023-01-05 13:25 | disposition home or self-care (01) | DRG 720 ==
LOC: EDBD 03:45 → ER 03:45 → TELE 06:25 → TELE-CENTR 10:42 → CENTRAL 01-01 20:00
PROVIDERS: ADMIT Nurse Practitioner; ATTEND Nurse Practitioner Acute Care
PROC: 5A09357 Assistance with Respiratory Ventilation, Less than 24 Consecutive Hours, Continuous Positive Airway Pressure (ICD-10-PCS; principal; 2022-12-29)
DX: A41.01 Sepsis due to Methicillin susceptible Staphylococcus aureus (principal); J96.21 Acute and chronic respiratory failure with hypoxia; J45.901 Unspecified asthma with (acute) exacerbation; F15.10 Other stimulant abuse, uncomplicated; Z79.51 Long term (current) use of inhaled steroids; Z87.891 Personal history of nicotine dependence
CPT/HCPCS: 36415; 36600; 71045; 80048; 80053; 80202; 80307; 80320; 81001; 82805; 83605; 83735; 83880; 84484; 85025; 85610; 85730; 87040; 87077; 87081; 87147; 87186; 93005; 93306; 94640; 96365; 96366; 96367; 96372; 96375; G0378; J0696

== ENCOUNTER 2023-01-19 11:27 | Inpatient (IN) | payer MEDICAID ==
[2023-01-19] VITALS (8 sets, daily range): BP systolic 118; BP diastolic 61–63; PULSE 82–102; RESP 16–20; TEMP 98–98.3; O2SAT 91–100
[~2023-01-19] VITALS: Ht 182.9 cm; Wt 75.5 kg
[~2023-01-19 11:27] MED LIST changes: +ALB5IS NEB; +BUDE1AER5 IN; +DOXY1CAP57 PO
[2023-01-19] MEDS ORDERED: IPRATROPIUM BROM 0.5 MG/2.5ML INH SOL NEB ONE (11:30)
[2023-01-19] MEDS ORDERED: ALBUTEROL SULF 2.5 MG/0.5ML(0.5%) NEB SOLN NEB ONE ×2 (11:30→12:45)
[2023-01-19] MEDS ORDERED: methylPREDNISolone SOD SUCC 125 MG/2 ML VL IM ONE (11:45)
[2023-01-19] MEDS ORDERED: ALBUTEROL MEDNEB 2.5 mg/3ml NEB ONE ×2 (11:55→12:42)
[2023-01-19 12:38] LABS: Basophils # (auto) 0.1 10 ^3/uL (0-0.2)
[2023-01-19 12:39] LABS: Basophils % (auto) 0.5 % (0.0-2.0); Eosinophils # (auto) 1.8 10 ^3/uL (0-0.8); Eosinophils % (auto) 13.6 % (0.0-7.0); Hematocrit 49.4 % (41.0-53.0); Hemoglobin 16.5 g/dL (13.5-17.5); Lymphocytes # (auto) 2.6 10 ^3/uL (0.4-5.4); Lymphocytes % (auto) 20.2 % (10.0-50.0); Mean Corpuscular Hemoglobin 30.3 pg (28.0-32.0); Mean Corpuscular Hgb Conc. 33.4 g/dL (32.0-36.0); Mean Corpuscular Volume 90.7 fL (80.0-100.0); Monocytes % (auto) 7.6 % (0.0-12.0); Neutrophils # (auto) 7.5 10 ^3/uL (1.6-8.6); Neutrophils % (auto) 58.1 % (37.0-80.0); Nucleated Red Blood Cells % 0.1 %; Red Blood Cells 5.44 10^6/uL (4.5-5.90); Red Cell Distribution Width 14.3 % (11.8-14.3)
[2023-01-19] MEDS ORDERED: MAGNESIUM SULFATE 1GM/100ML 100 ML IV ONE (12:45)
[2023-01-19 13:05] LABS: Alanine Aminotransferase 26 U/L (7-40); Albumin 4.2 g/dL (3.2-4.8); Alkaline Phosphatase 101 U/L (46-116); Anion Gap 7 (5-15); Aspartate Aminotransferase 24 U/L (13-40); BUN/Creatinine Ratio 15.1 (10.0-20.0); Blood Urea Nitrogen 13 mg/dL (9-23); Calcium 10.1 mg/dL (8.5-10.1); Carbon Dioxide 31 mmol/L (20-30); Chloride 105 mmol/L (98-107); Glucose 81 mg/dL (74-106); Potassium 4.4 mmol/L (3.5-5.1); Sodium 143 mmol/L (136-145)
[2023-01-19 13:06] LABS: Bilirubin, Total 0.5 mg/dL (0.2-1.0); Total Protein 6.9 g/dL (5.7-8.2)
[2023-01-19] MEDS ORDERED: ONDANSETRON HCL 4 MG/2 ML VIAL IV PRN (14:15)
[2023-01-19] MEDS ORDERED: MORPHINE SULFATE INJ 2 MG/ml SYRG IV PRN (14:15)
[2023-01-19] MEDS ORDERED: HYDROcodone-ACET 5/325MG TAB PO PRN (14:15)
[2023-01-19] MEDS ORDERED: DOCUSATE SOD 100 MG CAP PO PRN (14:15)
[2023-01-19] MEDS ORDERED: ACETAMINOPHEN 500 MG TAB PO PRN (14:15)
[2023-01-19] MEDS ORDERED: SODIUM CHLORIDE 0.9% 1,000 ML IV ONE (14:15)
[2023-01-19 14:54] LABS: Base Excess 0.7 mmol/L (-2.0-2.0)
[2023-01-19] MEDS: ALBUTEROL MEDNEB 2.5 mg/3ml NEB NEB SCH ×2 (19:27→22:40)
[2023-01-19] MEDS: IPRATROPIUM BROM 0.5 MG/2.5ML INH SOL NEB SCH ×2 (19:27→22:40)
[2023-01-19] MEDS: BUDESONIDE (INHALATION) 0.5 MG/2 ML NEB NEB SCH (22:40)
[2023-01-20] VITALS (12 sets, daily range): BP systolic 105–125; BP diastolic 42–65; PULSE 69–99; RESP 16–20; TEMP 97.8–98.1; O2SAT 92–100
[2023-01-20 06:06] LABS: Basophils # (auto) 0 10 ^3/uL (0-0.2); Basophils % (auto) 0.2 % (0.0-2.0); Eosinophils # (auto) 0 10 ^3/uL (0-0.8); Hematocrit 43.3 % (41.0-53.0); Hemoglobin 14.2 g/dL (13.5-17.5); Lymphocytes # (auto) 1.2 10 ^3/uL (0.4-5.4); Lymphocytes % (auto) 7.9 % (10.0-50.0); Mean Corpuscular Hgb Conc. 32.8 g/dL (32.0-36.0); Mean Corpuscular Volume 91.5 fL (80.0-100.0); Monocytes # (auto) 0.5 10 ^3/uL (0-1.3); Monocytes % (auto) 3.2 % (0.0-12.0); Neutrophils # (auto) 13.1 10 ^3/uL (1.6-8.6); Neutrophils % (auto) 88.7 % (37.0-80.0); Red Blood Cells 4.74 10^6/uL (4.5-5.90); Red Cell Distribution Width 14.4 % (11.8-14.3); White Blood Cell 14.7 10^3/uL (4.4-10.8)
[2023-01-20 06:19] LABS: Chloride 106 mmol/L (98-107); Potassium 4.4 mmol/L (3.5-5.1); Sodium 139 mmol/L (136-145)
[2023-01-20 06:20] LABS: Anion Gap 7 (5-15); Carbon Dioxide 26 mmol/L (20-30)
[2023-01-20 06:25] LABS: Glucose 111 mg/dL (74-106)
[2023-01-20 06:26] LABS: BUN/Creatinine Ratio 20.2 (10.0-20.0); Blood Urea Nitrogen 17 mg/dL (9-23)
[2023-01-20] MEDS: IPRATROPIUM BROM 0.5 MG/2.5ML INH SOL NEB SCH ×5 (06:53→22:33)
[2023-01-20] MEDS: BUDESONIDE (INHALATION) 0.5 MG/2 ML NEB NEB SCH ×2 (06:53→22:33)
[2023-01-20] MEDS: ALBUTEROL MEDNEB 2.5 mg/3ml NEB NEB SCH ×5 (06:53→22:33)
[2023-01-20] MEDS ORDERED: methylPREDNISolone SOD SUCC 40 MG/ML VL IV SCH (10:00)
[2023-01-20 10:53] LABS: Amphetamine Screen, Urine Neg (NEGATIVE); Barbiturate Scree,Urine Neg (NEGATIVE); Benzodiazephine Screen, Urine Neg (NEGATIVE); Cocaine Screen, Urine Neg (NEGATIVE); Opiate Scree,Urine Neg (NEGATIVE)
[2023-01-20 10:54] LABS: Cannabinoid Screen, Urine Neg (NEGATIVE); Phencyclidine Screen, Urine Neg (NEGATIVE)
[2023-01-20] MEDS ORDERED: ALPRAZolam 0.25 MG TAB PO PRN (13:00)
[2023-01-20] MEDS ORDERED: MAGNESIUM SULFATE 1GM/100ML 100 ML IV ONE (13:00)
[2023-01-20] MEDS: SODIUM CHLORIDE 0.9% 1,000 ML IV SCH ×2 (15:00→23:00)
[2023-01-20] MEDS ORDERED: MONTELUKAST SODIUM 10 MG TAB PO SCH (22:00)
[2023-01-20] MEDS: methylPREDNISolone SOD SUCC 40 MG/ML VL IV SCH (22:02)
[2023-01-21] VITALS (7 sets, daily range): BP systolic 107–125; BP diastolic 56–66; PULSE 63–84; RESP 16–20; TEMP 97.5–98.7; O2SAT 94–100
[2023-01-21 06:42] LABS: Anion Gap 6 (5-15); Carbon Dioxide 27 mmol/L (20-30); Chloride 106 mmol/L (98-107); Potassium 4.5 mmol/L (3.5-5.1); Sodium 139 mmol/L (136-145)
[2023-01-21 06:43] LABS: Calcium 8.6 mg/dL (8.5-10.1)
[2023-01-21 06:48] LABS: BUN/Creatinine Ratio 19.5 (10.0-20.0); Blood Urea Nitrogen 17 mg/dL (9-23); Glucose 122 mg/dL (74-106)
[2023-01-21] MEDS: IPRATROPIUM BROM 0.5 MG/2.5ML INH SOL NEB SCH ×2 (06:56→10:00)
[2023-01-21] MEDS: BUDESONIDE (INHALATION) 0.5 MG/2 ML NEB NEB SCH (06:57)
[2023-01-21] MEDS: ALBUTEROL MEDNEB 2.5 mg/3ml NEB NEB SCH ×2 (06:57→10:00)
[2023-01-21] MEDS: SODIUM CHLORIDE 0.9% 1,000 ML IV SCH (09:00)
[2023-01-21] MEDS: methylPREDNISolone SOD SUCC 40 MG/ML VL IV SCH (09:37)
[2023-01-21] MEDS ORDERED: PRED20TA2 PO (11:58)
[2023-01-21] MEDS ORDERED: ALBUTEROL MEDNEB 2.5 mg/3ml NEB ONE (14:21)
[2023-01-21] MEDS ORDERED: IPRATROPIUM BROM 0.5 MG/2.5ML INH SOL ONE (14:21)
== END 2023-01-21 14:01 | disposition home or self-care (01) | DRG 133 ==
LOC: ER 11:27 → OVERFLOW 14:17 → WEST WING 17:36
PROVIDERS: ADMIT Nurse Practitioner Acute Care; ATTEND Nurse Practitioner Acute Care
DX: J96.01 Acute respiratory failure with hypoxia (principal); J45.901 Unspecified asthma with (acute) exacerbation; F17.200 Nicotine dependence, unspecified, uncomplicated; D72.829 Elevated white blood cell count, unspecified; Z79.51 Long term (current) use of inhaled steroids; F15.10 Other stimulant abuse, uncomplicated
CPT/HCPCS: 36415; 36600; 71045; 80048; 80053; 80307; 82805; 83880; 84484; 85025; 87081; 94640; 99291; G0378

== ENCOUNTER 2023-04-09 01:00 | Inpatient (IN) | payer MEDICAID ==
[2023-04-09] VITALS (12 sets, daily range): BP systolic 118; BP diastolic 70; PULSE 71–101; RESP 18–79; TEMP 97.6; O2SAT 94–99
[~2023-04-09] VITALS: Ht 182.9 cm; Wt 72.7 kg
[2023-04-09] MEDS ORDERED: TERBUTALINE SULFATE 1 MG/ML 1ML VIAL SC ONE (01:15)
[2023-04-09] MEDS ORDERED: SODIUM CHLORIDE 0.9% 1,000 ML IV ONE (01:15)
[2023-04-09] MEDS ORDERED: methylPREDNISolone SOD SUCC 125 MG/2 ML VL IV ONE ×2 (01:15→09:45)
[2023-04-09] MEDS ORDERED: IPRATROPIUM BROM 0.5 MG/2.5ML INH SOL NEB ONE ×2 (01:15→09:45)
[2023-04-09] MEDS ORDERED: ALBUTEROL SULF 2.5 MG/0.5ML(0.5%) NEB SOLN NEB ONE ×2 (01:15→09:45)
[2023-04-09] MEDS ORDERED: ONDANSETRON HCL 4 MG/2 ML VIAL IV ONE (01:15)
[2023-04-09 01:31] LABS: Basophils # (auto) 0.1 10 ^3/uL (0-0.2); Basophils % (auto) 0.4 % (0.0-2.0); Eosinophils # (auto) 1.7 10 ^3/uL (0-0.8); Eosinophils % (auto) 9.9 % (0.0-7.0); Hematocrit 45.5 % (41.0-53.0); Hemoglobin 15.2 g/dL (13.5-17.5); Lymphocytes # (auto) 2.5 10 ^3/uL (0.4-5.4); Lymphocytes % (auto) 14.3 % (10.0-50.0); Mean Corpuscular Hemoglobin 29.3 pg (28.0-32.0); Mean Corpuscular Hgb Conc. 33.3 g/dL (32.0-36.0); Mean Corpuscular Volume 87.9 fL (80.0-100.0); Monocytes # (auto) 1.3 10 ^3/uL (0-1.3); Monocytes % (auto) 7.1 % (0.0-12.0); Neutrophils % (auto) 68.3 % (37.0-80.0); Red Blood Cells 5.18 10^6/uL (4.5-5.90); Red Cell Distribution Width 14.3 % (11.8-14.3); White Blood Cell 17.6 10^3/uL (4.4-10.8)
[2023-04-09 01:38] LABS: Base Excess 1.7 mmol/L (-2.0-2.0)
[2023-04-09 01:52] LABS: Alanine Aminotransferase 19 U/L (7-40); Alkaline Phosphatase 93 U/L (46-116); Anion Gap 6 (5-15); Aspartate Aminotransferase 21 U/L (13-40); Bilirubin, Total 0.5 mg/dL (0.2-1.0); Blood Urea Nitrogen 10 mg/dL (9-23); Carbon Dioxide 25 mmol/L (20-30); Chloride 107 mmol/L (98-107); Glucose 114 mg/dL (74-106); Magnesium 2.1 mg/dL (1.6-2.6); Potassium 3.8 mmol/L (3.5-5.1); Sodium 138 mmol/L (136-145); Total Protein 7.1 g/dL (5.7-8.2)
[2023-04-09 02:07] LABS: Blood Alcohol < 3.0 mg/dL (<10)
[2023-04-09] MEDS: MAGNESIUM SULFATE 1GM/100ML 100 ML IV SCH ×2 (03:32→04:36)
[2023-04-09 05:20] LABS: COVID19 ANTIGEN SOFIA FIA NEGATIVE (NEGATIVE); Rapid Influenza A Negative (Negative); Rapid Influenza B Negative (Negative)
[2023-04-09] MEDS ORDERED: MORPHINE SULFATE INJ 2 MG/ml SYRG IV PRN (09:45)
[2023-04-09] MEDS ORDERED: DOCUSATE SOD 100 MG CAP PO PRN (09:45)
[2023-04-09] MEDS ORDERED: ONDANSETRON HCL 4 MG/2 ML VIAL IV PRN (09:45)
[2023-04-09] MEDS: SODIUM CHLORIDE 0.9% 1,000 ML IV SCH ×2 (09:45→18:15)
[2023-04-09] MEDS: AZITHROMYCIN 500MG/ 250ML 250 ML IV SCH (10:27)
[2023-04-09] MEDS: PANTOPRAZOLE 40 MG TAB PO SCH (10:27)
[2023-04-09] MEDS: ALBUTEROL SULF 2.5 MG/0.5ML(0.5%) NEB SOLN NEB SCH ×4 (10:55→21:45)
[2023-04-09] MEDS: IPRATROPIUM BROM 0.5 MG/2.5ML INH SOL NEB SCH ×4 (10:55→21:45)
[2023-04-09 13:55] LABS: Urine Epithelial Cast None Seen /hpf (<5)
[2023-04-09] MEDS: methylPREDNISolone SOD SUCC 125 MG/2 ML VL IV SCH ×2 (14:00→22:15)
[2023-04-09 14:19] LABS: Amphetamine Screen, Urine Pos (NEGATIVE); Benzodiazephine Screen, Urine Neg (NEGATIVE)
[2023-04-09 14:20] LABS: Barbiturate Scree,Urine Neg (NEGATIVE); Cannabinoid Screen, Urine Neg (NEGATIVE); Cocaine Screen, Urine Neg (NEGATIVE); Opiate Scree,Urine Neg (NEGATIVE); Phencyclidine Screen, Urine Neg (NEGATIVE)
[2023-04-09 14:38] LABS: Urine Bacteria NONE SEEN /hpf (None Seen); Urine Blood Negative /uL (Negative); Urine Clarity Clear (Clear); Urine Color Yellow (Yellow); Urine Protein, UAD Negative (Negative); Urine WBC <1 /hpf (0 - 3)
[2023-04-10] MEDS: ALBUTEROL SULF 2.5 MG/0.5ML(0.5%) NEB SOLN NEB SCH ×4 (02:00→15:20)
[2023-04-10] MEDS: IPRATROPIUM BROM 0.5 MG/2.5ML INH SOL NEB SCH ×4 (02:00→15:20)
[2023-04-10] MEDS: SODIUM CHLORIDE 0.9% 1,000 ML IV SCH ×2 (03:05→06:29)
[2023-04-10 04:00] VITALS: TEMP 98.1
[2023-04-10 05:29] LABS: Hemoglobin 13.5 g/dL (13.5-17.5)
[2023-04-10 05:32] LABS: Hematocrit 40.6 % (41.0-53.0); Mean Corpuscular Hemoglobin 29.1 pg (28.0-32.0); Mean Corpuscular Hgb Conc. 33.2 g/dL (32.0-36.0); Mean Corpuscular Volume 87.4 fL (80.0-100.0); Red Blood Cells 4.64 10^6/uL (4.5-5.90); Red Cell Distribution Width 13.9 % (11.8-14.3); White Blood Cell 16.6 10^3/uL (4.4-10.8)
[2023-04-10 05:51] LABS: Alanine Aminotransferase 12 U/L (7-40); Albumin 3.5 g/dL (3.2-4.8); Alkaline Phosphatase 82 U/L (46-116); Anion Gap 6 (5-15); Aspartate Aminotransferase 16 U/L (13-40); BUN/Creatinine Ratio 14.7 (10.0-20.0); Blood Urea Nitrogen 14 mg/dL (9-23); Carbon Dioxide 29 mmol/L (20-30); Chloride 105 mmol/L (98-107); Glucose 142 mg/dL (74-106); Potassium 4.4 mmol/L (3.5-5.1); Sodium 140 mmol/L (136-145)
[2023-04-10 05:52] LABS: Bilirubin, Total 0.3 mg/dL (0.2-1.0); Total Protein 6.2 g/dL (5.7-8.2)
[2023-04-10 06:14] LABS: Band Neutrophils % (manual) 0; Basophils % (manual) 0 (0.0-2.0); Eosinophils % (manual) 0 (0-7); Metamyelocytes % 0; Myelocytes % 0; Promyelocytes % 0; Reactive Lymphocytes 0
[2023-04-10] MEDS: methylPREDNISolone SOD SUCC 125 MG/2 ML VL IV SCH ×2 (06:22→14:39)
[2023-04-10 07:10] VITALS: PULSE 100; RESP 20; O2SAT 88
[2023-04-10 07:30] VITALS: PULSE 83; RESP 18
[2023-04-10 08:55] LABS: Blast Cells 1; Lymphocytes % (manual) 2 (10.0-50.0); Monocytes % (manual) 2 (0-12); Platelet Estimate Increased
[2023-04-10] MEDS ORDERED: cefTRIAXone 1GM/50ML D5W 50 ML IV SCH (09:00)
[2023-04-10] MEDS: PANTOPRAZOLE 40 MG TAB PO SCH (09:32)
[2023-04-10] MEDS: AZITHROMYCIN 500MG/ 250ML 250 ML IV SCH (11:27)
[2023-04-10] MEDS ORDERED: PRED10TA PO (14:56)
[2023-04-10] MEDS ORDERED: DOXY1CAP57 PO (14:56)
[2023-04-10] MEDS ORDERED: ALBU108A5 IN (14:56)
[2023-04-10 15:20] VITALS: PULSE 84; RESP 22; O2SAT 90
[2023-04-10 16:17] VITALS: BP 133/68
== END 2023-04-10 16:20 | disposition home or self-care (01) | DRG 133 ==
LOC: ER 01:00 → OVERFLOW 09:54 → UNDODEPER 04-10 16:02
PROVIDERS: ADMIT Nurse Practitioner Family; ATTEND Internal Medicine
DX: J96.01 Acute respiratory failure with hypoxia (principal); E87.3 Alkalosis; J45.902 Unspecified asthma with status asthmaticus; D72.829 Elevated white blood cell count, unspecified; D75.839 Thrombocytosis, unspecified; F10.10 Alcohol abuse, uncomplicated; F15.10 Other stimulant abuse, uncomplicated; F17.200 Nicotine dependence, unspecified, uncomplicated; J98.11 Atelectasis; L30.9 Dermatitis, unspecified; Z59.00 Homelessness unspecified; Z71.6 Tobacco abuse counseling; Z20.822 Contact with and (suspected) exposure to COVID-19
CPT/HCPCS: 36415; 36600; 71045; 80053; 80307; 80320; 81001; 82805; 83605; 83735; 83880; 84484; 85007; 85025; 85027; 87040; 87426; 87804; 94640; 99291; G0378; J2405

== ENCOUNTER 2023-04-20 04:32 | Inpatient (IN) | payer MEDICAID ==
[~2023-04-20] VITALS: Ht 182.9 cm; Wt 79.5 kg
[~2023-04-20 04:32] MED LIST changes: +PRED10TA PO
[2023-04-20] MEDS ORDERED: ALBUTEROL SULF 2.5 MG/0.5ML(0.5%) NEB SOLN HHN ONE (04:45)
[2023-04-20] MEDS ORDERED: methylPREDNISolone SOD SUCC 125 MG/2 ML VL IV ONE (04:45)
[2023-04-20] MEDS ORDERED: IPRATROPIUM BROM 0.5 MG/2.5ML INH SOL HHN ONE (04:45)
[2023-04-20 04:54] VITALS: PULSE 96; RESP 17; O2SAT 96
[2023-04-20] MEDS: MAGNESIUM SULFATE 1GM/100ML 100 ML IV SCH ×2 (05:23→06:19)
[2023-04-20 05:48] LABS: Basophils # (auto) 0 10 ^3/uL (0-0.2); Basophils % (auto) 0.4 % (0.0-2.0); Eosinophils % (auto) 8.8 % (0.0-7.0); Hematocrit 43.6 % (41.0-53.0); Hemoglobin 14.3 g/dL (13.5-17.5); Lymphocytes # (auto) 1.6 10 ^3/uL (0.4-5.4); Lymphocytes % (auto) 14.4 % (10.0-50.0); Mean Corpuscular Hgb Conc. 32.8 g/dL (32.0-36.0); Mean Corpuscular Volume 88.4 fL (80.0-100.0); Monocytes # (auto) 0.7 10 ^3/uL (0-1.3); Monocytes % (auto) 6.5 % (0.0-12.0); Neutrophils # (auto) 7.9 10 ^3/uL (1.6-8.6); Neutrophils % (auto) 69.9 % (37.0-80.0); Red Blood Cells 4.93 10^6/uL (4.5-5.90); Red Cell Distribution Width 14.5 % (11.8-14.3); White Blood Cell 11.3 10^3/uL (4.4-10.8)
[2023-04-20 05:59] LABS: Chloride 109 mmol/L (98-107); Potassium 3.9 mmol/L (3.5-5.1); Sodium 142 mmol/L (136-145)
[2023-04-20 06:00] LABS: Anion Gap 4 (5-15); Calcium 9.4 mg/dL (8.5-10.1); Carbon Dioxide 29 mmol/L (20-30)
[2023-04-20 06:05] LABS: Blood Urea Nitrogen 13 mg/dL (9-23); Glucose 109 mg/dL (74-106)
[2023-04-20 06:59] LABS: Urine Bacteria NONE SEEN /hpf (None Seen); Urine Blood Negative /uL (Negative); Urine Clarity Clear (Clear); Urine Protein, UAD Negative (Negative); Urine Specific Gravity 1.013 (1.001-1.035); Urine Urobilinogen Normal (Negative); Urine WBC 2 /hpf (0 - 3)
[2023-04-20 07:03] LABS: Urine Color Straw (Yellow)
[2023-04-20] MEDS ORDERED: NITROGLYCERIN 0.4 MG SL TAB SL PRN (07:15)
[2023-04-20] MEDS ORDERED: MORPHINE SULFATE INJ 2 MG/ml SYRG IV PRN (07:15)
[2023-04-20] MEDS ORDERED: TEMAZEPAM 15 MG CAP PO PRN (07:15)
[2023-04-20] MEDS ORDERED: IPRATROPIUM BROM 0.5 MG/2.5ML INH SOL NEB PRN ×2 (07:15)
[2023-04-20] MEDS ORDERED: ACETAMINOPHEN 325 MG TAB PO PRN (07:15)
[2023-04-20] MEDS ORDERED: ONDANSETRON HCL 4 MG/2 ML VIAL IV PRN (07:15)
[2023-04-20] MEDS ORDERED: ALBUTEROL SULF 2.5 MG/0.5ML(0.5%) NEB SOLN NEB PRN (07:15)
[2023-04-20 07:16] LABS: Amphetamine Screen, Urine Pos (NEGATIVE); Barbiturate Scree,Urine Neg (NEGATIVE); Benzodiazephine Screen, Urine Neg (NEGATIVE); Cocaine Screen, Urine Neg (NEGATIVE)
[2023-04-20 07:17] LABS: Cannabinoid Screen, Urine Neg (NEGATIVE); Opiate Scree,Urine Neg (NEGATIVE); Phencyclidine Screen, Urine Neg (NEGATIVE)
[2023-04-20 07:40] VITALS: PULSE 85; RESP 15; TEMP 97.7; O2SAT 97
[2023-04-20 08:37] VITALS: O2SAT 94
[2023-04-20 08:38] VITALS: BP 143/74; PULSE 82; RESP 18; O2SAT 94
[2023-04-20] MEDS ORDERED: methylPREDNISolone SOD SUCC 40 MG/ML VL IV SCH (10:00)
[2023-04-20] MEDS ORDERED: PRED20TA2 PO (12:06)
[2023-04-20 15:00] VITALS: BP 142/70; PULSE 100; RESP 16; O2SAT 95
== END 2023-04-20 15:00 | disposition home or self-care (01) | DRG 141 ==
LOC: EDBD 04:32 → ER 04:32 → TELE 07:04 → UNDODEPER 14:49
PROVIDERS: ADMIT Internal Medicine Pulmonary Disease; ATTEND Internal Medicine Pulmonary Disease
DX: J45.42 Moderate persistent asthma with status asthmaticus (principal); J96.21 Acute and chronic respiratory failure with hypoxia; L30.9 Dermatitis, unspecified; D72.829 Elevated white blood cell count, unspecified; F19.10 Other psychoactive substance abuse, uncomplicated; F15.10 Other stimulant abuse, uncomplicated; F10.10 Alcohol abuse, uncomplicated; F17.200 Nicotine dependence, unspecified, uncomplicated
CPT/HCPCS: 36415; 71045; 80048; 80307; 81001; 85025; 94644; G0378

== ENCOUNTER 2023-05-10 12:15 | Emergency (ER) | payer MEDICAID ==
[~2023-05-10] VITALS: Ht 182.9 cm; Wt 75.2 kg
[2023-05-10 12:15] VITALS: TEMP 97.9
[2023-05-10 12:27] VITALS: BP 136/81; PULSE 84; RESP 18; O2SAT 99
[2023-05-10] MEDS: CLINDAMYCIN HCL 150 MG CAP PO ONE (12:52)
[2023-05-10] MEDS: cefTRIAXone SOD 1,000 MG VL IM ONE (12:53)
[2023-05-10] MEDS: HYDROcodone-ACET 10/325MG TAB PO ONE (12:53)
[2023-05-10] MEDS: KETOROLAC TROMETH 60MG/2ML VIAL IM ONE (12:54)
[2023-05-10] MEDS ORDERED: AMOX500T3 PO (13:59)
[2023-05-10] MEDS ORDERED: CLIN300C70 PO (13:59)
[2023-05-10] MEDS ORDERED: IBU600T PO (13:59)
== END 2023-05-10 14:00 | disposition home or self-care (01) ==
LOC: ER 12:15
DX: H60.12 Cellulitis of left external ear (principal); J45.909 Unspecified asthma, uncomplicated; F17.210 Nicotine dependence, cigarettes, uncomplicated; Z79.2 Long term (current) use of antibiotics; Z79.899 Other long term (current) drug therapy
CPT/HCPCS: 96372; 99284; J0696; J1885

== ENCOUNTER 2023-05-17 05:46 | Emergency (ER) | payer MEDICAID ==
[~2023-05-17] VITALS: Ht 182.9 cm; Wt 68.7 kg
[~2023-05-17 05:46] MED LIST changes: +AMOX500T3 PO; +CLIN300C70 PO; +IBU600T PO
[2023-05-17] MEDS ORDERED: DexAMETHasone SOD PHOS 10MG/1ML VIAL INJ IV ONE (06:00)
[2023-05-17] MEDS: IPRATROPIUM BROM 0.5 MG/2.5ML INH SOL NEB ONE (06:11)
[2023-05-17] MEDS: ALBUTEROL SULF 2.5 MG/0.5ML(0.5%) NEB SOLN NEB ONE (06:12)
[2023-05-17 06:54] LABS: Basophils # (auto) 0.1 10 ^3/uL (0-0.2); Basophils % (auto) 0.5 % (0.0-2.0); Eosinophils # (auto) 1.4 10 ^3/uL (0-0.8); Eosinophils % (auto) 13.2 % (0.0-7.0); Hemoglobin 14.3 g/dL (13.5-17.5); Lymphocytes # (auto) 2.6 10 ^3/uL (0.4-5.4); Lymphocytes % (auto) 25.1 % (10.0-50.0); Mean Corpuscular Hemoglobin 29.1 pg (28.0-32.0); Mean Corpuscular Hgb Conc. 33.3 g/dL (32.0-36.0); Mean Corpuscular Volume 87.3 fL (80.0-100.0); Monocytes % (auto) 10.2 % (0.0-12.0); Neutrophils # (auto) 5.2 10 ^3/uL (1.6-8.6); Nucleated Red Blood Cells % 0.1 %; Red Blood Cells 4.92 10^6/uL (4.5-5.90); Red Cell Distribution Width 15.1 % (11.8-14.3); White Blood Cell 10.3 10^3/uL (4.4-10.8)
[2023-05-17 07:16] LABS: Alanine Aminotransferase 33 U/L (7-40); Albumin 4.2 g/dL (3.2-4.8); Alkaline Phosphatase 95 U/L (46-116); Anion Gap 11 (5-15); Aspartate Aminotransferase 45 U/L (13-40); BUN/Creatinine Ratio 17.4 (10.0-20.0); Bilirubin, Total 0.4 mg/dL (0.2-1.0); Blood Urea Nitrogen 19 mg/dL (9-23); Calcium 9.5 mg/dL (8.5-10.1); Carbon Dioxide 25 mmol/L (20-30); Chloride 105 mmol/L (98-107); Glucose 67 mg/dL (74-106); Potassium 4.4 mmol/L (3.5-5.1); Sodium 141 mmol/L (136-145); Total Protein 6.9 g/dL (5.7-8.2)
[2023-05-17] MEDS: DexAMETHasone SOD PHOS 10MG/1ML VIAL INJ IM ONE (07:40)
[2023-05-17] MEDS ORDERED: METH4PAK PO (10:58)
[2023-05-17] MEDS ORDERED: AZIT1POW PO (10:58)
[2023-05-17] MEDS: IPRATROPIUM BROM 0.5 MG/2.5ML INH SOL HHN ONE (12:00)
[2023-05-17] MEDS: ALBUTEROL SULF 2.5 MG/0.5ML(0.5%) NEB SOLN HHN ONE (12:00)
[2023-05-17 13:01] VITALS: BP 148/98; PULSE 117; RESP 20; TEMP 98; O2SAT 95
== END 2023-05-17 13:14 | disposition home or self-care (01) ==
LOC: ER 05:46
DX: J45.909 Unspecified asthma, uncomplicated (principal); F17.210 Nicotine dependence, cigarettes, uncomplicated; F15.90 Other stimulant use, unspecified, uncomplicated
CPT/HCPCS: 36415; 71045; 80053; 83880; 84484; 85025; 94640; 94644; 96372; 99285; J1100; J7644

== ENCOUNTER 2023-06-04 17:59 | Emergency (ER) | payer MEDICAID ==
[~2023-06-04] VITALS: Ht 182.9 cm; Wt 79.5 kg
[~2023-06-04 17:59] MED LIST changes: -ALB5IS NEB; -ALBU0.084 NEB; -ALBUAER3 IN; -AMOX500T3 PO; -BUDE1AER5 IN; -CLIN300C70 PO; -DOXY1CAP57 PO; +FLUT1AER17 IN; -IBU600T PO; -PANT40TA2 PO; -PRED10TA PO
[2023-06-04] MEDS: DexAMETHasone SOD PHOS 10MG/1ML VIAL INJ IM ONE (18:34)
[2023-06-04 18:53] LABS: Base Excess 2.1 mmol/L (-2.0-2.0)
[2023-06-04] MEDS: ALBUTEROL SULF 2.5 MG/0.5ML(0.5%) NEB SOLN NEB ONE (18:58)
[2023-06-04] MEDS: IPRATROPIUM BROM 0.5 MG/2.5ML INH SOL NEB ONE (18:58)
[2023-06-04] MEDS: BUDESONIDE (INHALATION) 0.5 MG/2 ML NEB NEB ONE (18:59)
[2023-06-04 19:06] LABS: Basophils % (auto) 0.3 % (0.0-2.0); Eosinophils # (auto) 2.1 10 ^3/uL (0-0.8); Lymphocytes # (auto) 2.5 10 ^3/uL (0.4-5.4); Lymphocytes % (auto) 15.8 % (10.0-50.0); Monocytes % (auto) 7.9 % (0.0-12.0)
[2023-06-04 19:08] LABS: Basophils # (auto) 0.1 10 ^3/uL (0-0.2); Eosinophils % (auto) 12.8 % (0.0-7.0); Hematocrit 45.7 % (41.0-53.0); Mean Corpuscular Hemoglobin 29.2 pg (28.0-32.0); Mean Corpuscular Hgb Conc. 32.8 g/dL (32.0-36.0); Monocytes # (auto) 1.3 10 ^3/uL (0-1.3); Neutrophils # (auto) 10.2 10 ^3/uL (1.6-8.6); Neutrophils % (auto) 63.2 % (37.0-80.0); Red Blood Cells 5.13 10^6/uL (4.5-5.90); Red Cell Distribution Width 15.4 % (11.8-14.3); White Blood Cell 16.1 10^3/uL (4.4-10.8)
[2023-06-04 19:23] LABS: INR 0.98 (0.9-1.15); Partial Thromboplastin Time 26.1 SEC (24.5-34.5); Prothrombin Time 10.3 sec (9.3-11.8)
[2023-06-04 19:24] LABS: Alanine Aminotransferase 23 U/L (7-40); Albumin 3.7 g/dL (3.2-4.8); Alkaline Phosphatase 91 U/L (46-116); Anion Gap 7 (5-15); Aspartate Aminotransferase 22 U/L (13-40); BUN/Creatinine Ratio 21.6 (10.0-20.0); Bilirubin, Total 0.3 mg/dL (0.2-1.0); Blood Urea Nitrogen 16 mg/dL (9-23); Calcium 9.8 mg/dL (8.7-10.4); Carbon Dioxide 29 mmol/L (20-30); Chloride 106 mmol/L (98-107); Glucose 101 mg/dL (74-106); Potassium 4.5 mmol/L (3.5-5.1); Sodium 142 mmol/L (136-145); Total Protein 5.8 g/dL (5.7-8.2)
[2023-06-04 19:37] VITALS: BP 110/79; PULSE 101; RESP 18; O2SAT 92
[2023-06-04] MEDS: IOHEXOL 350 MG/ML 100ML IJ ONE (21:09)
[2023-06-04] MEDS ORDERED: DEX4T PO (23:57)
[2023-06-04] MEDS ORDERED: AUG875T PO (23:57)
== END 2023-06-04 23:52 | disposition left against medical advice (07) ==
LOC: ER 17:59
DX: J45.901 Unspecified asthma with (acute) exacerbation (principal); F17.210 Nicotine dependence, cigarettes, uncomplicated; R07.89 Other chest pain
CPT/HCPCS: 36415; 36600; 71045; 80053; 82805; 83880; 85025; 85379; 85610; 85730; 94640; 96372; 99284; J1100; J7644; Q9967

== ENCOUNTER 2023-07-09 21:55 | Emergency (ER) | payer MEDICAID ==
[~2023-07-09] VITALS: Ht 182.9 cm; Wt 77.6 kg
[~2023-07-09 21:55] MED LIST changes: -ALBU108A5 IN; +ALBUAER3 IN; +AZIT500T66 PO; -FLUT1AER17 IN; +FLUT250M2 INH
[2023-07-09 22:07] VITALS: BP 125/64; PULSE 95; RESP 21; TEMP 98.3
[2023-07-09] MEDS: IPRATROPIUM BROM 0.5 MG/2.5ML INH SOL NEB ONE (22:25)
[2023-07-09] MEDS: ALBUTEROL SULF 2.5 MG/0.5ML(0.5%) NEB SOLN NEB ONE (22:25)
[2023-07-10] MEDS ORDERED: ALBUAER3 IN
[2023-07-10] MEDS ORDERED: PRED20TA2 PO
[2023-07-10 01:15] VITALS: O2SAT 96
[2023-07-10] MEDS: methylPREDNISolone SOD SUCC 125 MG/2 ML VL IM ONE (01:15)
== END 2023-07-10 01:15 | disposition home or self-care (01) ==
LOC: ER 21:55
DX: J45.901 Unspecified asthma with (acute) exacerbation (principal); Z87.891 Personal history of nicotine dependence
CPT/HCPCS: 94640; 99283; J7644

== ENCOUNTER 2023-08-24 05:11 | Emergency (ER) | payer MEDICAID ==
[~2023-08-24] VITALS: Ht 182.9 cm; Wt 81.0 kg
[2023-08-24] MEDS: ALBUTEROL SULF 2.5 MG/0.5ML(0.5%) NEB SOLN NEB ONE ×2 (05:38→10:40)
[2023-08-24] MEDS: IPRATROPIUM BROM 0.5 MG/2.5ML INH SOL NEB ONE (05:38)
[2023-08-24] MEDS: DexAMETHasone SOD PHOS 10MG/1ML VIAL INJ IM ONE (05:43)
[2023-08-24 06:33] VITALS: RESP 18; O2SAT 98
[2023-08-24 07:26] VITALS: PULSE 90; RESP 18; O2SAT 92
[2023-08-24 10:27] LABS: Amphetamine Screen, Urine Pos (NEGATIVE); Barbiturate Scree,Urine Neg (NEGATIVE); Benzodiazephine Screen, Urine Neg (NEGATIVE); Cannabinoid Screen, Urine Neg (NEGATIVE); Cocaine Screen, Urine Neg (NEGATIVE); Opiate Scree,Urine Neg (NEGATIVE); Phencyclidine Screen, Urine Neg (NEGATIVE)
[2023-08-24 11:37] LABS: Urine Bacteria FEW /hpf (None Seen); Urine Blood Negative /uL (Negative); Urine Clarity Clear (Clear); Urine Color Light-Yellow (Yellow); Urine Protein, UAD Negative (Negative); Urine Specific Gravity 1.014 (1.001-1.035); Urine Urobilinogen Normal (Negative); Urine WBC <1 /hpf (0 - 3)
[2023-08-24 11:40] LABS: Basophils # (auto) 0 10 ^3/uL (0-0.2); Basophils % (auto) 0.2 % (0.0-2.0); Eosinophils # (auto) 0 10 ^3/uL (0-0.8); Eosinophils % (auto) 0.2 % (0.0-7.0); Hematocrit 42.8 % (41.0-53.0); Hemoglobin 14.1 g/dL (13.5-17.5); Lymphocytes # (auto) 0.4 10 ^3/uL (0.4-5.4); Lymphocytes % (auto) 5.2 % (10.0-50.0); Mean Corpuscular Hemoglobin 29.5 pg (28.0-32.0); Mean Corpuscular Hgb Conc. 32.9 g/dL (32.0-36.0); Mean Corpuscular Volume 89.7 fL (80.0-100.0); Monocytes # (auto) 0.1 10 ^3/uL (0-1.3); Monocytes % (auto) 1.1 % (0.0-12.0); Neutrophils # (auto) 7.5 10 ^3/uL (1.6-8.6); Neutrophils % (auto) 93.3 % (37.0-80.0); Nucleated Red Blood Cells % 0.1 %; Red Blood Cells 4.77 10^6/uL (4.5-5.90); Red Cell Distribution Width 13.9 % (11.8-14.3); White Blood Cell 8.1 10^3/uL (4.4-10.8)
[2023-08-24 11:53] LABS: Chloride 109 mmol/L (98-107); Potassium 4.5 mmol/L (3.5-5.1); Sodium 141 mmol/L (136-145)
[2023-08-24 11:54] LABS: BUN/Creatinine Ratio 13.6 (10.0-20.0); Blood Urea Nitrogen 15 mg/dL (9-23); Glucose 135 mg/dL (74-106)
[2023-08-24 11:56] LABS: Anion Gap 8 (5-15); Calcium 9.2 mg/dL (8.7-10.4); Carbon Dioxide 24 mmol/L (20-30)
[2023-08-24] MEDS ORDERED: ENOXAPARIN SOD 100 MG/1 ML SYRINGE SC ONE (15:45)
[2023-08-24] MEDS ORDERED: DOCUSATE SOD 100 MG CAP PO PRN (15:45)
[2023-08-24] MEDS ORDERED: ACETAMINOPHEN 325 MG TAB PO PRN (15:45)
[2023-08-24] MEDS ORDERED: MORPHINE SULFATE INJ 2 MG/ml SYRG IV PRN ×2 (15:45)
[2023-08-24] MEDS ORDERED: NITROGLYCERIN 0.4 MG SL TAB SL PRN (15:45)
[2023-08-24] MEDS ORDERED: ONDANSETRON HCL 4 MG/2 ML VIAL IV PRN (15:45)
[2023-08-24] MEDS ORDERED: HYDROcodone-ACET 5/325MG TAB PO PRN (15:45)
[2023-08-24] MEDS: ENOXAPARIN SOD 80 MG/0.8ML SYRINGE SC ONE (16:23)
[2023-08-24] MEDS ORDERED: TRIAMCINOLONE ACET 0.1% TOPICAL CREAM 15GM TOP PRN (16:30)
[2023-08-24 18:43] VITALS: PULSE 100; RESP 20; O2SAT 98
[2023-08-24] MEDS: IPRATROPIUM BROM 0.5 MG/2.5ML INH SOL NEB SCH (18:43)
[2023-08-24] MEDS: ALBUTEROL SULF 2.5 MG/0.5ML(0.5%) NEB SOLN NEB SCH (18:43)
[2023-08-24 20:00] VITALS: BP 110/41; PULSE 100; RESP 20; TEMP 98.1; O2SAT 97
[2023-08-24] MEDS: IOHEXOL 350 MG/ML 100ML IJ ONE (22:20)
[2023-08-25] MEDS ORDERED: PANTOPRAZOLE 40 MG TAB PO SCH (06:00)
[2023-08-25] MEDS ORDERED: methylPREDNISolone SOD SUCC 40 MG/ML VL IV SCH (10:00)
[2023-08-25] MEDS ORDERED: ENOXAPARIN SOD 40 MG/0.4 ML SYRINGE SC SCH (10:00)
== END 2023-08-25 01:45 | disposition left against medical advice (07) ==
LOC: ER 05:11 → UNDOADMIN 15:46 → OVERFLOW 15:46 → ER 08-25 01:45
DX: J45.901 Unspecified asthma with (acute) exacerbation (principal)
CPT/HCPCS: 36415; 71045; 71275; 80048; 80307; 81001; 84484; 85025; 85379; 94640; 96372; 99285; J1100; J7644; Q9967; G0378

== ENCOUNTER 2023-08-27 06:45 | Emergency (ER) | payer MEDICAID ==
[~2023-08-27] VITALS: Ht 182.9 cm; Wt 79.5 kg
[2023-08-27] MEDS: methylPREDNISolone SOD SUCC 125 MG/2 ML VL IM ONE (07:30)
[2023-08-27] MEDS: IPRATROPIUM BROM 0.5 MG/2.5ML INH SOL NEB ONE (07:30)
[2023-08-27] MEDS: ALBUTEROL SULF 2.5 MG/0.5ML(0.5%) NEB SOLN NEB ONE (07:30)
[2023-08-27 07:58] VITALS: BP 149/84; TEMP 98.3
[2023-08-27 09:11] VITALS: PULSE 77; RESP 16; O2SAT 94
== END 2023-08-27 08:03 | disposition home or self-care (01) ==
LOC: ER 06:45
DX: J45.901 Unspecified asthma with (acute) exacerbation (principal); F15.90 Other stimulant use, unspecified, uncomplicated; Z87.891 Personal history of nicotine dependence
CPT/HCPCS: 71045; 94640; 96372; 99283; J2919; J7644